=== PATIENT | female | born 1955 | race Caucasian/White ===

== ENCOUNTER → 2017-07-28 12:14 | Outpatient (CLI) | payer MEDICARE ==
[2015-11-30 08:18] VITALS: BMI 31.0
[~2017-07-28 12:14] MED LIST: APAP325 MG PO; BAYER CHEWABLE81 MG PO; DEXTROSE 50%/WA50 ML IV; ECOTRIN325 MG PO; GLUCAGON1 MG/KIT IM; GLUCAGON1 MG/KIT SQ; HUMULIN R100 U/ML; HYDROCHLOROTHIA25 MG PO; IMDUR30 MG PO; INSTA-GLUCOSE31 GM PO; LOPRESSOR50 MG PO; MERREM IV1 G/VIAL IV; MULTI-DAY VITAM1 TAB PO; NORCO 10/325 TA1 TA1 PO; NORCO 5/325 TAB1 TA1 PO; NORVASC5 MG PO; ONDANSETRON4 MG/2 M3 IV; PLAVIX75 MG PO; PRAVACHOL20 MG PO; PRINIVIL20 MG PO; PROAIR HFA8.5 GM INH; SODIUM CL 0.91000 ML IV; SPIRIVA18 MCG INH; ZESTORETIC 20/21 TAB PO
== END | disposition home or self-care (01) ==
LOC: D.MAMMO 12:14
DX: N64.4 Mastodynia (principal)

== ENCOUNTER 2017-11-10 09:11 | Day surgery (SDC) | payer MEDICARE ==
--- NOTE | ~2017-11-10 | OP ---
PATIENT NAME: WHITNEY SAENZ MEDICAL RECORD: [id number] :53 LOCATION:[facility] ADMISSION DATE: SURGEON: ULISSES JOEL DO DATE OF OPERATION: 11/10/2017 PROCEDURE: EGD with biopsies. INDICATIONS FOR PROCEDURE: Epigastric pain, heartburn, nausea. SCOPE: Olympus video gastroscope. MEDICATIONS: Propofol 150 mg IV per anesthesia. ESTIMATED BLOOD LOSS: Minimal. COMPLICATIONS: None. FINDINGS: Informed consent was given. The patient was made comfortable with the above medication. After reaching an adequate level of sedation by slow IV push, the patient was placed on her left side. The endoscope was advanced under direct visualization through the mouth to the second portion of the duodenum. The upper, middle, and lower thirds of the esophagus appeared normal. At the GE junction, there was some mild evidence of LA class A reflux-induced esophagitis. The endoscope was advanced beyond the GE junction into the stomach and retroflexed to view the cardia, which appeared normal. The fundus also appeared normal. The entire stomach exhibited some erythema and granularity consistent with gastritis. Random biopsies were taken to submit for histology and to rule out H. pylori. In the antrum and prepyloric region, there were a few small ulcerations, which had a crated appearance. There was no evidence of bleeding from these sites. The endoscope was advanced beyond the pylorus into the duodenum, which also revealed some erythema and granularity. There were a few shallow and superficial ulcerations within the duodenum as well. The endoscope was then withdrawn from the patient. The patient tolerated the procedure well and there were no complications. IMPRESSION: 1. LA class A reflux-induced esophagitis. 2. Gastritis. 3. Few gastric ulcers. 4. Duodenitis. 5. Duodenal ulcer. PLAN AND RECOMMENDATIONS: 1. Discharge home when recovery parameters are met. 2. Follow up biopsy specimen results. 3. GERD diet and reflux precautions. 4. Continue current medications. 5. Protonix or equivalent PPI 40 mg daily times 8 weeks. 6. Repeat EGD in 12 weeks to document healing of ulcerations. If these are not healed at that time, biopsies will be taken of the gastric ulcers. 7. We will follow up on nausea symptoms. If this is persistent, consider gastric emptying scan. TRANSINT:[id number] Voice Confirmation ID: [id number] DOCUMENT ID: [id number] OPERATIVE REPORT [id number] WHITNEY SAENZ,ULISSES Zaidi DO at 0852 CC: [id number] DICTATION DATE: 11/10/17 1119 SHOT HOLE SHOOTER: 11/10/17 1150 [facility] 11/10/17 [place] [id number] [place] [id number]
[2017-11-10 10:23] VITALS: BP 123/69; BMI 29.6
[2017-11-10 10:32] LABS: HEMATOCRIT 46.5 % (36.0-48.0); HEMOGLOBIN 15.2 g/dL (12-16); MCH 27.8 pg (26.0-34.0); MCHC 32.7 g/dL (31.0-37.0); MCV 85.2 fL (80.0-100.0); MEAN PLATELET VOLUME 10.3 fL (7.4-10.4); RBC 5.46 10x6/uL (4.00-5.40); RDW 14.8 % (11.5-14.5); WBC 12.5 10x3/uL (4.8-10.8)
== END 2017-11-10 12:20 | disposition home or self-care (01) ==
LOC: D.OPS 09:11
PROVIDERS: Anesthesiology
DX: R10.13 Epigastric pain (principal); R11.0 Nausea; K29.70 Gastritis, unspecified, without bleeding; K29.80 Duodenitis without bleeding; I10 Essential (primary) hypertension; J44.9 Chronic obstructive pulmonary disease, unspecified; K26.9 Duodenal ulcer, unspecified as acute or chronic, without hemorrhage or perforation

== ENCOUNTER 2017-11-29 14:29 | Outpatient (CLI) | payer MEDICARE ==
[~2017-11-29] VITALS: Ht 167.6 cm; Wt 84.2 kg
--- NOTE | ~2017-11-29 | HEMODYNAMI ---
PATIENT:WHITNEY SAENZ MEDICAL RECORD: [id number] : 53 [id number] ADMISSION DATE: 11/29/17 Generatedon:11/30/201710:11 Patient name: WHITNEY SAENZ Patient #: [id number] SSN: D OB: 1955 Date of study: 11/30/2017 Page: Of Hemodynamic Procedure Report Patient Data Patient Demographics Procedure consent was obtained First Name: WHITNEY Gender: Female Last Name: DANY : 1955 [facility] Initial: CATHERINE Age: 62 year(s) Patient #: [id number] Race: Additional ID: [id number] Contact details Address: [address] [place] [address] State: [place] City: [place] Zip code: [address] Past Medical History History of disease Date Diagnosis Comments CAD Peripheral vascular disease COPD Allergies: No known allergies Admission Admission Data Admission Date: 11/29/2017 Admission Time: 17:16 Admit Source: Emergency department Room #: D.2115 Lab Results Lab Result Date: 11/29/2017 Lab Result Time: 14:00 Biochemistry Name Units Result Min Max BUN mg/dl 17 --(---*)-- 7 18 Creatinine mg/dl 1.2 --(---*)-- 0.6 1.3 Troponin I ng/ml 0.964 --(----)-* 0 0.06 Troponin l ng/ml 1.279 --(----)-* 0 0.06 CBC Name Units Result Min Max Hematocrit % 49.8 --(--*-)-- 42 54 Hemoglobin g/dl 16.4 --(--*-)-- 13.5 17.5 Procedure Procedure Types Cath Procedure Diagnostic Procedure LHC LHC w/Coronaries w/Grafts Sedation Charges Moderate Sedation up to 45 minutes PCI Procedure AMI/SVG/SILVERWARE CLEANER PTCA or Stent SVG-BMS/MYRNA Initial Procedure Description Procedure Date Procedure Date: 11/30/2017 Procedure Start Time: 8:07 Procedure End Time: 9:57 Procedure Staff Name Function Roberto Tirado MD Performing Physician Felicita Baig RT Monitor Reid Brown RT Scrub Chai Bell RN Nurse Procedure Data Cath Procedure Fluoroscopy Diagnostic fluoroscopy Total fluoroscopy Time: time: 24.4 min 24.4 min Diagnostic fluoroscopy Total fluoroscopy dose: dose: 2577 mGy 2577 mGy Contrast Material Contrast Material Type Amount (ml) Isovue 300 220 Entry Location Entry Primary Successful Side Size Upsize Upsize Entry Closure Succes sful Closure Location (Fr) 1 (Fr) 2 (Fr) Remarks Device Remarks Femoral Right 5 Fr 6 Fr Exoseal artery Short Estimated blood loss: 10 ml Diagnostic catheters Device Type Used For End Catheter Placement MULTIPACK JL 4.0 5Fr Procedure catheter MULTIPACK 3DRC 5Fr Procedure catheter DIAGNOSTIC MPA-2 5Fr Procedure catheter ([id number]) MULTIPACK Pigtail 5 Fr Ventriculography catheter Procedure Complications No complications Procedure Medications Medication Administration Route Dosage Plavix P.O. 300 mg Lidocaine 2% added to field 20 Heparin Flush Bag added to field 2 bags (1000units/500ml NS) Oxygen NC 2 l/min 0.9% NaCl I.V. 100 ml/hr Versed I.V. 2 mg Fentanyl I.V. 25 mcg Versed I.V. 1 mg Angiomax (bolus) Angiomax Drip I.V. drip 29.4 ml/hr (250mg/50ml NS) (Standard) Versed I.V. 1 mg Fentanyl I.V. 25 mcg Fentanyl I.V. 50 mcg Heparin Flush Bag added to field 1 bags (1000units/500ml NS) Nitroglycerin IC/IA Angiomax Drip 29.4 ml/hr (250mg/50ml NS) (Standard) Hemodynamics Rest Heart Rate: 79 (bpm) Pressure Samples Time Site Value (mmHg) Purpose Heart Use Rate(bpm) 8:27 LV 158/-8,16 EDP 79 8:29 AO 139/66(98) Pullback 79 8:29 LV 147/13,16 Pullback 79 Gradients Valve Time Site 1 Site 2 Mean SEP/DFP Peak To Heart Use (mmHg) (sec/min) Peak Rate (mmHg) (bpm) Aortic 8:29 LV AO 6 21 8 79 147/13,16 139/66(98) Calculations Valve P-P Mean Valve Index Valve Source Name Gradient Area Flow (cm2) Aortic 8 6 8 6 Snapshots Pre Cath Intra NCS Post Cath Vital Signs Time Heart Resp SPO2 etCO2 NIBP (mmHg) Rhythm Pain Sedation Rate (ipm) (%) (mmHg) Status Level (bpm) 7:57:17 73 22 99 33.7 145/79(122) NSR 0 (11) 10(A) , No pain 8:02:32 76 19 99 38.2 141/78(112) NSR 0 (11) 10(A) , No pain 8:07:58 77 18 98 30 157/78(120) NSR 0 (11) 10(A) , No pain 8:12:41 75 20 96 34.5 132/81(115) NSR 0 (11) 10(A) , No pain 8:17:23 79 18 96 36 146/80(119) NSR 0 (11) 9(A) , No pain 8:22:06 80 18 96 33.7 139/79(112) NSR 0 (11) 9(A) , No pain 8:26:51 79 18 96 25.5 136/77(117) NSR 0 (11) 9(A) , No pain 8:31:33 77 20 96 36 134/73(112) NSR 0 (11) 9(A) , No pain 8:36:16 77 16 96 37.5 136/78(115) NSR 0 (11) 9(A) , No pain 8:41:01 76 17 95 32.3 143/72(111) NSR 0 (11) 9(A) , No pain 8:45:41 77 17 95 33.8 139/82(110) NSR 0 (11) 9(A) , No pain 8:50:24 79 18 96 33.8 149/73(111) NSR 0 (11) 9(A) , No pain 8:55:07 78 17 96 28.5 135/79(105) NSR 0 (11) 9(A) , No pain 8:59:45 78 16 94 36 130/72(98) NSR 0 (11) 9(A) , No pain 9:04:24 79 13 94 34.5 125/74(96) NSR 0 (11) 9(A) , No pain 9:09:06 78 14 94 36.8 122/67(111) NSR 0 (11) 9(A) , No pain 9:13:47 79 15 95 37.5 130/75(110) NSR 0 (11) 9(A) , No pain 9:18:27 80 16 96 37.5 138/79(114) NSR 0 (11) 9(A) , No pain 9:23:12 80 20 96 25.5 154/84(127) NSR 0 (11) 9(A) , No pain 9:27:57 84 9 97 36.7 160/84(122) NSR 0 (11) 9(A) , No pain 9:32:40 81 18 93 13.5 147/81(114) NSR 0 (11) 9(A) , No pain 9:37:20 79 15 96 38.3 133/80(106) NSR 0 (11) 9(A) , No pain 9:42:03 78 13 96 42.8 142/75(103) NSR 0 (11) 9(A) , No pain 9:46:43 77 15 96 24.7 132/76(102) NSR 0 (11) 9(A) , No pain 9:51:22 75 18 97 36 129/73(112) NSR 0 (11) 10(A) , No pain 9:56:05 69 15 97 32.3 134/67(118) NSR 0 (11) 10(A) , No pain Medications Time Medication Route Dose Verified Delivered Reason Notes Effectiveness by by 7:55:41 Plavix P.O. 300 Roberto Buffie used for mg Celestino Bell RN procedure 7:55:50 Lidocaine 2% added to field 20ml Roberto Roberto for local vial Celestino Tirado MD anesthetic 7:55:57 Heparin Flush added to field 2 Roberto Roberto used for Bag bags Celestino Tirado MD procedure (1000units/500ml NS) 7:56:09 Oxygen NC 2 Roberto Buffie used for l/min Celestino montero MD 7:56:18 0.9% NaCl I.V. 100 Roberto Buffie Per physicia n ml/hr Celestino Bell RN, MD 8:00:35 Versed I.V. 2 mg Roberto Buffie for sedation Celestino Bell RN, MD 8:00:42 Fentanyl I.V. 25 Roberto Buffie for sedation mcg Celestino Bell RN, MD 8:11:07 Versed I.V. 1 mg Roberto Buffie for sedation Celestino Bell RN, MD 8:33:05 Angiomax (bolus) Roberto Buffie 250mg/50 Celestino Bell RN ml MD 8:34:18 Angiomax Drip I.V. drip 29.4 Roberto Buffie for (250mg/50ml NS) ml/hr Celestino Bell RN anticoagulation (Standard) 8:54:54 Versed I.V. 1 mg Roberto Buffie for sedation Celestino Bell RN, MD 8:55:02 Fentanyl I.V. 25 Roberto Buffie for sedation mcg Celestino Bell RN, MD 9:22:09 Fentanyl I.V. 50 Roberto Buffie for chest pa in mcg Celestino Bell RN, MD 9:23:45 Nitroglycerin mixed Roberto Roberto for IC/IA and Celestino Tirado MD vasodilation on MD field 9:37:57 Heparin Flush added to field 1 Roberto Buffie used for Bag bags Celestino Bell RN procedure (1000units/500ml NS) 9:50:59 Angiomax Drip I.V. 29.4 Roberto Roberto for (250mg/50ml NS) drip-discontinued ml/hr Celestino Tirado MD anticoagulation (Standard) Procedure Log Time Note 7:21:57 Informed consent obtained and on chart 7:22:00 Admit Source: Emergency department 7:22:42 Diagnostic Cath status Elective 7:22:56 Time tracking: Call back 7:23:00 Plan of Care:Hemodynamics will remain stable., Cardiac rhythm will remain stable., Comfort level will be maintained., Respiratory function will remain adequate., Patient/ family verbilizes understanding of procedure., Procedure tolerated without complication., Recovers from procedure without complications.. 7:23:07 H&P Date Dictated: 11/29/2017 New H&P dictated by physician.. 7:24:16 Lab Result : BUN 17 mg/dl 7:24:16 Lab Result : Creatinine 1.2 mg/dl 7:24:16 Lab Result : Troponin T 0.964 ng/ml 7:24:16 Lab Result : Troponin l 1.279 ng/ml 7:24:16 Lab Result : Hematocrit 49.8 % 7:24:16 Lab Result : Hemoglobin 16.4 g/dl 7:24:19 Lab results completed and on chart. 7:30:08 Chai Bell RN sent for patient. Start room use. 7:45:08 Patient received from Med II to CCL 1 Alert and oriented. Tansferred to table in Supine position. 7:45:09 Warm blankets applied, and anamaria hugger turned on for patient comfort. 7:45:09 Correct patient and procedure confirmed by team. 7:45:15 ECG and BP/O2 sat monitors applied to patient. 7:45:17 Pre-procedure instructions explained to patient. 7:45:17 Pre-op teaching completed and patient verbalized understanding. 7:45:19 Family in patients room. 7:45:20 Patient NPO since Midnight. 7:45:27 Patient allergic to No known allergies 7:54:34 Is the patient allergic to Iodine/contrast media? No. 7:54:39 Is patient on blood thinner?Yes 7:54:43 ACC The patient was administered the following blood thiners within the last 24 hours: ACCPlavix 7:54:45 Patient diabetic? No. 7:54:52 Previous problem with sedation/anesthesia? No ? 7:54:55 Snore? Yes 7:54:56 Sleep apnea? No 7:55:02 Airway obstruction? Yes copd 7:55:16 Dentures? No ? 7:55:23 IV patent on arrival in right forearm with 0.9% NaCl at [facility]. 7:55:41 Plavix 300 mg P.O. was administered by Chai Bell RN; used for procedure; 7:55:42 Right groin area was prepped with chlora-prep and draped in sterile fashion 7:55:43 Alarms reviewed by R. N. 7:55:44 Alarms reviewed by R. N. 7:55:44 Sharps counted by scrub and verified by R.N. 7:55:46 Physician paged 7:55:48 Physician arrived 7:55:49 --------ALL STOP TIME OUT------ 7:55:50 Lidocaine 2% 20ml vial added to field was administered by Roberto Tirado MD; for local anesthetic; 7:55:50 Final Timeout: patient, procedure, and site verified with staff and physician. All members of the team are in agreement. 7:55:56 Right groin site verified by team. 7:55:57 Heparin Flush Bag (1000units/500ml NS) 2 bags added to field was administered by Roberto Tirado MD; used for procedure; 7:56:09 Oxygen 2 l/min NC was administered by Chai Bell RN; used for procedure; 7:56:18 0.9% NaCl 100 ml/hr I.V. was administered by Chai Bell RN; Per physician; 7:56:21 Vital chart was started 7:56:26 Physical assessment completed. ASA score P 2 - A patient with mild systemic disease as per Roberto Tirado MD. 7:56:33 Sedation plan: IV Moderate Sedation Medication:Versed, Fentanyl 7:56:45 Use device set Femoral Dx 7:56:51 Procedure started. 7:56:51 Full Disclosure recording started 7:57:28 ACIST Syringe (56156) opened to sterile field. 7:57:29 Bag Decanter (2002S) opened to sterile field. 7:57:30 Medline Cath Pack ([id number]) opened to sterile field. 7:57:30 SHEATH 5FR [place] ([id number]) opened to sterile field. 7:57:31 DIAGNOSTIC WIRE .035 260cm J wire (395236) opened to sterile field. 7:57:32 ACIST Hand Control (65773) opened to sterile field. 7:57:33 ACIST Manifold (42992) opened to sterile field. 7:57:34 DIAGNOSTIC Multipack 5Fr catheter set (DF3564) opened to sterile field. 7:57:35 Tegaderm 4 x 4 (1626W) opened to sterile field. 7:57:50 PERCUTANEOUS ENTRY 19GA needle opened to sterile field. 8:00:35 Versed 2 mg I.V. was administered by Chai Bell RN; for sedation; 8:00:42 Fentanyl 25 mcg I.V. was administered by Chai Bell RN; for sedation; 8:07:56 Local anesthetic to right femoral artery with Lidocaine 2% by Roberto Tirado MD.INITIAL ACCESS ONLY 8:08:00 MICROPUNCTURE 4FR Cook ([id number]) opened to sterile field. 8:08:02 Access obtained with 4Fr micropunture. 8:08:12 A 5 Fr sheath was inserted into the Right Femoral artery 8:09:25 Zero performed for pressure channel P1 8:10:22 A MULTIPACK JL 4.0 5Fr catheter was advanced over the wire and used for Procedure. 8:10:27 LCA angiography performed. 8:11:07 Versed 1 mg I.V. was administered by Chai Bell RN; for sedation; 8:12:41 Catheter removed. 8:13:01 A MULTIPACK 3DRC 5Fr catheter was advanced over the wire and used for Procedure. 8:13:48 RCA angiography performed. 8:15:40 SVG to Diag angiography performed. 8:20:11 VILLALTA to LAD angiography performed. 8:21:40 Catheter removed. 8:24:20 A DIAGNOSTIC MPA-2 5Fr catheter ([id number]) was advanced over the wire and used for Procedure. 8:24:39 SVG to RCA occluded. 8:25:08 Catheter removed. 8:26:27 A MULTIPACK Pigtail 5 Fr catheter was advanced over the wire and used for Ventriculography. 8:28:27 COPILOT Valve Control ([id number]) opened to sterile field. 8:29:24 EF : 50 % 8:30:22 GUIDE 6FR LCB SH catheter ([id number]) opened to sterile field. 8:30:23 BMW 190cm [place] 2 J wire ([id number]) opened to sterile field. 8:30:23 INFLATOR Merit BasixCompak (BF4930) opened to sterile field. 8:30:25 SHEATH 6FR [place] (PEW086) opened to sterile field. 8:30:42 Catheter removed. 8:30:44 Proceeding to intervention. 8:30:57 Sheath upsized to a 6 Fr Short. 8:33:05 Angiomax (bolus) was administered by Chai Bell RN; ; 250mg/50 ml 8:34:18 Angiomax Drip (250mg/50ml NS) (Standard) 29.4 ml/hr I.V. drip was administered by Chai Bell RN; for anticoagulation; 8:43:10 6 Fr LCB SH guide catheter was inserted over the wire 8:54:54 Versed 1 mg I.V. was administered by Chai Bell RN; for sedation; 8:55:02 Fentanyl 25 mcg I.V. was administered by Chai Bell RN; for sedation; 8:55:14 spiderFX 3.0 opened to sterile field. 9:07:05 Spider would not advance into SVG. 9:08:34 bmw wire advanced. 9:08:53 Wire advanced across lesion. 9:15:17 The MITCHELL RX 2.5 x 22 stent ([id number]) was advanced then removed because device failure 9:15:47 Stent struts were damaged 9:20:24 Inflation number: 1 A EUPHORA 3.0 x 15 Balloon ([id number]) was prepped and advanced across the Aorta Left -> 1st Diag, then inflated to 12 JHON for 0:45 (min:sec). 9:21:22 Inflation number: 2 The EUPHORA 3.0 x 15 Balloon ([id number]) was reinflated across the Aorta Left -> 1st Diag, to 6 JHON for 0:23 (min:sec). 9:22:09 Fentanyl 50 mcg I.V. was administered by Chai Bell RN; for chest pain; 9:23:45 Nitroglycerin IC/IA mixed and on field was administered by Roberto Tirado MD; for vasodilation; 9:25:33 The ELUNIR 2.5 x 20 stent ([id number]) was advanced then removed because device failure 9:30:08 Inflation number: 3 A EUPHORA 3.0 x 20 Balloon ([id number]) was prepped and advanced across the Aorta Left -> 1st Diag, then inflated to 8 JHON for 0:13 (min:sec). 9:30:24 Inflation number: 4 The EUPHORA 3.0 x 20 Balloon ([id number]) was reinflated across the Aorta Left -> 1st Diag, to 9 JHON for 0:13 (min:sec). 9:30:49 Inflation number: 5 The EUPHORA 3.0 x 20 Balloon ([id number]) was reinflated across the Aorta Left -> 1st Diag, to 14 JHON for 0:11 (min:sec). 9:32:03 Balloon removed over the wire. 9:34:17 Inflation Number: 6 A MITCHELL RX 2.5 x 26 stent ([id number]) was prepped and advanced across the Aorta Left -> 1st Diag. The stent was deployed at 14 JHON for 0:10 (min:sec). 9:37:57 Heparin Flush Bag (1000units/500ml NS) 1 bags added to field was administered by Chai Bell RN; used for procedure; 9:40:02 Inflation Number: 7 A MITCHELL RX 3.0 x 18 stent ([id number]) was prepped and advanced across the Aorta Left -> 1st Diag. The stent was deployed at 15 JHON for 0:14 (min:sec). 9:44:51 Inflation Number: 8 A MITCHELL RX 2.0 x 18 stent ([id number]) was prepped and advanced across the Aorta Left -> 1st Diag. The stent was deployed at 12 JHON for 0:06 (min:sec). 9:44:58 Inflation number: 9 The stent balloon was then re-inflated across the Aorta Left -> 1st Diag to 0 JHON for 0:00 (min:sec). 9:49:45 Inflation Number: 10 A MITCHELL RX 2.0 x 12 stent ([id number]) was prepped and advanced across the Aorta Left -> 1st Diag. The stent was deployed at 12 JHON for 0:00 (min:sec). 9:50:14 EXOSEAL 6Fr (EX600) opened to sterile field. 9:50:59 Angiomax Drip (250mg/50ml NS) (Standard) 29.4 ml/hr I.V. drip-discontinued was administered by Roberto Tirado MD; for anticoagulation; 9:52:42 Wire removed. 9:52:43 Guide catheter removed. 9:52:56 Sheath removed intact; hemostasis achieved with Exoseal to the Right Femoral artery. 9:52:59 Procedure ended.(Physican Out) 9:53:13 Fluoroscopy time 24.40 minutes. 9:53:17 Flurop Dose total: 2577 9:53:17 Fluoroscopy dose: 2577 mGy 9:53:29 Contrast amount:Isovue 300 220ml. 9:53:31 Sharps counted by scrub and verified by R.N. 9:53:37 Insertion/operative site no bleeding no hematoma. 9:53:59 Post right femoral artery:stable 9:54:03 Post Procedure Pulses reassessed and unchanged 9:54:06 Post-procedure physical assessment completed. ASA score P 2 - A patient with mild systemic disease as per Roberto Tirado MD. 9:54:12 Post procedure rhythm: unchanged. 9:54:16 Estimated blood loss: 10 ml 9:54:20 Post procedure instruction explained to patient.Patient verbalizes understanding. 9:55:15 Procedure type changed to Cath procedure, Diagnostic procedure, LHC, LHC w/Coronaries w/Grafts, Sedation Charges, Moderate Sedation up to 45 minutes, PCI procedure, AMI/SVG/SILVERWARE CLEANER PTCA or Stent, SVG-BMS/MYRNA Initial 9:55:18 Procedure and supply charges have been captured, reviewed, submitted and are correct. 9:56:55 Procedure Complication : No complications 9:56:58 Vital chart was stopped 9:56:59 See physician's report for complete and final results. 9:57:05 Report given to Med II. 9:57:09 Patient transfered to Med II with Bed. 9:57:11 Procedure ended. 9:57:11 Full Disclosure recording stopped 9:57:15 End room use (Document Last) 10:10:07 FEMSTOP Gold (E81739) opened to sterile field. 10:10:41 Femstop placed over the right femoral artery at 130 mmHg. Hemostasis achieved. Intervention Summary Intervention Notes Time ActionType Lesion and Equipment Used Action# Pressure Duration Attributes 9:15:17 Discard MITCHELL RX 2.5 x Stent 22 stent ([id number]) 9:20:24 Inflate Aorta Left EUPHORA 3.0 x 1 12 00:45 balloon -> 1st Diag 15 Balloon ([id number]) 9:21:22 Reinflate Aorta Left EUPHORA 3.0 x 2 6 00:23 balloon -> 1st Diag 15 Balloon ([id number]) 9:25:33 Discard ELUNIR 2.5 x Stent 20 stent ([id number]) 9:30:08 Inflate Aorta Left EUPHORA 3.0 x 3 8 00:13 balloon -> 1st Diag 20 Balloon ([id number]) 9:30:24 Reinflate Aorta Left EUPHORA 3.0 x 4 9 00:13 balloon -> 1st Diag 20 Balloon ([id number]) 9:30:49 Reinflate Aorta Left EUPHORA 3.0 x 5 14 00:11 balloon -> 1st Diag 20 Balloon ([id number]) 9:34:17 Place stent Aorta Left MITCHELL RX 2.5 x 6 14 00:10 -> 1st Diag 26 stent ([id number]) 9:40:02 Place stent Aorta Left MITCHELL RX 3.0 x 7 15 00:14 -> 1st Diag 18 stent ([id number]) 9:44:51 Place stent Aorta Left MITCHELL RX 2.0 x 8 12 00:06 -> 1st Diag 18 stent ([id number]) 9:44:58 Reinflate Aorta Left MITCHELL RX 2.0 x 9 0 00:00 stent -> 1st Diag 18 stent balloon ([id number]) 9:49:45 Place stent Aorta Left MITCHELL RX 2.0 x 10 12 00:00 -> 1st Diag 12 stent ([id number]) Device Usage Item Name Manufacture Quantity Catalog [facility] Lot# / Number Charge Number Stock Stock Serial# Code ACIST Syringe Acist 1 50634 213828 428946 700581 20 (12040) Medical Systems Inc Bag Decanter Microtek 1 2001S 237151 50641 166575 5 (2001S) Medical Inc. Medline Cath Cardinal 1 [id number] 571689 40048 910383 5 Pack Health ([id number]) SHEATH 5FR Terumo 1 GWK852 128970 861859 364101 40 [place] (PST027) DIAGNOSTIC St Evaristo 1 952700 629698 509768 398498 30 WIRE .035 260cm J wire (469366) ACIST Hand Acist 1 24060 897276 786051 536916 5 Control Medical (10222) Systems Inc ACIST Manifold Acist 1 55138 298565 890686 718068 5 (71281) Medical Systems Inc DIAGNOSTIC Cardinal 1 IK9819 581473 43041 861093 30 Multipack 5Fr Health catheter set (LA4260) Tegaderm 4 x 4 3M 1 1626W 301610 285922 384722 5 (1626W) PERCUTANEOUS SoothEase Medical 1 T36598 676227 819976 5 ENTRY 19GA needle MICROPUNCTURE SoothEase [facility] 1 Q93422 216809 676201 885511 5 4FR SoothEase (F82961) MULTIPACK JL Cardinal 1 691065 5 4.0 5Fr Health catheter MULTIPACK 3DRC Cardinal 1 971529 5 5Fr catheter Health DIAGNOSTIC Cardinal 1 [id number] 731695 521083 456027 5 MPA-2 5Fr Health catheter (557717Y) MULTIPACK Cardinal 1 229241 5 Pigtail 5 Fr Health catheter COPILOT Valve Grajeda 1 0090662 468615 962422 173164 5 Control Vascular (8328344) GUIDE 6FR LCB Medtronic 1 [id number] 389758 93573 416581 0 SH catheter ([id number]) BMW 190cm Grajeda 1 [id number] 238459 87351 258259 5 [place] 2 J Vascular wire (3665696F) INFLATOR Merit Merit 1 EZ8491 105910 544628 955665 15 [employer] Medical (NO4064) SHEATH 6FR Terumo 1 LCQ862 224199 339219 786177 40 [place] (RLK648) spiderFX 3.0 Unknown 1 0 0 MITCHELL RX 2.5 x Medtronic 1 [id number] 978711 5528863 638903 5 [id number] 22 stent ([id number]) EUPHORA 3.0 x Medtronic 1 [id number] 386834 930891 211655 5 [id number] 15 Balloon ([id number]) ELUNIR 2.5 x Cardinal 1 [id number] 843848 139692 756706 5 [id number] 20 stent Health ([id number]) EUPHORA 3.0 x Medtronic 1 [id number] 154195 358443 410221 5 [id number] 20 Balloon ([id number]) MITCHELL RX 2.5 x Medtronic 1 [id number] 878402 8481501 371511 5 [id number] 26 stent ([id number]) MITCHELL RX 3.0 x Medtronic 1 [id number] 510538 9264652 563162 5 [id number] 18 stent ([id number]) MITCHELL RX 2.0 x Medtronic 1 [id number] 809042 0659551 481739 5 [id number] 18 stent ([id number]) MITCHELL RX 2.0 x Medtronic 1 [id number] 449044 2043087 443113 5 [id number] 12 stent ([id number]) EXOSEAL 6Fr Cardinal 1 EX600 144575 859011 748664 10 (EX600) [facility] St Evaristo 1 Q26103 227711 376326 465489 5 ([id number]) Signature Audit [place] Stage Time Signature Unsigned Intra-Procedure 11/30/2017 Felicita Baig 10:11:44 AM RT(R) Signatures Monitor : Felicita Baig RT Signature : Date : Time : [address] [address]
--- NOTE | ~2017-11-29 | HEMODYNAMI ---
PATIENT:WHITNEY SAENZ MEDICAL RECORD: [id number] : 53 LOCATION:D. D.2115 ADMISSION DATE: 11/29/17 Generatedon:12/01/20178:45 Patient name: WHITNEY SAENZ Patient #: [id number] SSN: D OB: 1955 Date of study: 11/30/2017 Page: Of Hemodynamic Procedure Report Patient Data Patient Demographics Procedure consent was obtained First Name: WHITNEY Gender: Female Last Name: DANY : 1955 [facility] Initial: CATHERINE Age: 62 year(s) Patient #: [id number] Race: Additional ID: [id number] Contact details [address]: [address] [place] [address] State: [place] City: [place] Zip code: [address] Past Medical History History of disease Date Diagnosis Comments CAD Peripheral vascular disease COPD Allergies: No known allergies Admission Admission Data Admission Date: 11/29/2017 Admission Time: 17:16 Admit Source: Emergency department Room #: D.2115 Lab Results Lab Result Date: 11/29/2017 Lab Result Time: 14:00 Biochemistry Name Units Result Min Max BUN mg/dl 17 --(---*)-- 7 18 Creatinine mg/dl 1.2 --(---*)-- 0.6 1.3 Troponin I ng/ml 0.964 --(----)-* 0 0.06 Troponin l ng/ml 1.279 --(----)-* 0 0.06 CBC Name Units Result Min Max Hematocrit % 49.8 --(--*-)-- 42 54 Hemoglobin g/dl 16.4 --(--*-)-- 13.5 17.5 Procedure Procedure Types Cath Procedure Diagnostic Procedure LHC LHC w/Coronaries w/Grafts Sedation Charges Moderate Sedation up to 45 minutes PCI Procedure AMI/SVG/INSTRUCTIONAL ASSISTANT PTCA or Stent SVG-BMS/MYRNA Initial Procedure Description Procedure Date Procedure Date: 11/30/2017 Procedure Start Time: 8:07 Procedure End Time: 9:57 Procedure Staff Name Function Chai Bell RN Nurse Reid Brown RT Scrub Felicita Baig RT Monitor Roberto Tirado MD Performing Physician Jennifer Francis RT Monitor Procedure Data Cath Procedure Fluoroscopy Diagnostic fluoroscopy Total fluoroscopy Time: time: 24.4 min 24.4 min Diagnostic fluoroscopy Total fluoroscopy dose: dose: 2577 mGy 2577 mGy Contrast Material Contrast Material Type Amount (ml) Isovue 300 220 Entry Location Entry Primary Successful Side Size Upsize Upsize Entry Closure Succes sful Closure Location (Fr) 1 (Fr) 2 (Fr) Remarks Device Remarks Femoral Right 5 Fr 6 Fr Exoseal artery Short Estimated blood loss: 10 ml Diagnostic catheters Device Type Used For End Catheter Placement MULTIPACK JL 4.0 5Fr Procedure catheter MULTIPACK 3DRC 5Fr Procedure catheter DIAGNOSTIC MPA-2 5Fr Procedure catheter ([id number]) MULTIPACK Pigtail 5 Fr Ventriculography catheter Procedure Complications No complications Procedure Medications Medication Administration Route Dosage Plavix P.O. 300 mg Lidocaine 2% added to field 20 Heparin Flush Bag added to field 2 bags (1000units/500ml NS) Oxygen NC 2 l/min 0.9% NaCl I.V. 100 ml/hr Versed I.V. 2 mg Fentanyl I.V. 25 mcg Versed I.V. 1 mg Angiomax (bolus) Angiomax Drip I.V. drip 29.4 ml/hr (250mg/50ml NS) (Standard) Versed I.V. 1 mg Fentanyl I.V. 25 mcg Fentanyl I.V. 50 mcg Heparin Flush Bag added to field 1 bags (1000units/500ml NS) Nitroglycerin IC/IA Angiomax Drip 29.4 ml/hr (250mg/50ml NS) (Standard) Hemodynamics Rest HGB: 16.4 (g/dl) Heart Rate: 79 (bpm) Pressure Samples Time Site Value (mmHg) Purpose Heart Use Rate(bpm) 8:27 LV 158/-8,16 EDP 79 8:29 LV 147/13,16 Pullback 79 8:29 AO 139/66(98) Pullback 79 Gradients Valve Time Site 1 Site 2 Mean SEP/DFP Peak To Heart Use (mmHg) (sec/min) Peak Rate (mmHg) (bpm) Aortic 8:29 LV AO 6 21 8 79 147/13,16 139/66(98) Calculations Valve P-P Mean Valve Index Valve Source Name Gradient Area Flow (cm2) Aortic 8 6 8 6 Snapshots Pre Cath Intra NCS Post Cath Vital Signs Time Heart Resp SPO2 etCO2 NIBP (mmHg) Rhythm Pain Sedation Rate (ipm) (%) (mmHg) Status Level (bpm) 7:57:17 73 22 99 33.7 145/79(122) NSR 0 (11) 10(A) , No pain 8:02:32 76 19 99 38.2 141/78(112) NSR 0 (11) 10(A) , No pain 8:07:58 77 18 98 30 157/78(120) NSR 0 (11) 10(A) , No pain 8:12:41 75 20 96 34.5 132/81(115) NSR 0 (11) 10(A) , No pain 8:17:23 79 18 96 36 146/80(119) NSR 0 (11) 9(A) , No pain 8:22:06 80 18 96 33.7 139/79(112) NSR 0 (11) 9(A) , No pain 8:26:51 79 18 96 25.5 136/77(117) NSR 0 (11) 9(A) , No pain 8:31:33 77 20 96 36 134/73(112) NSR 0 (11) 9(A) , No pain 8:36:16 77 16 96 37.5 136/78(115) NSR 0 (11) 9(A) , No pain 8:41:01 76 17 95 32.3 143/72(111) NSR 0 (11) 9(A) , No pain 8:45:41 77 17 95 33.8 139/82(110) NSR 0 (11) 9(A) , No pain 8:50:24 79 18 96 33.8 149/73(111) NSR 0 (11) 9(A) , No pain 8:55:07 78 17 96 28.5 135/79(105) NSR 0 (11) 9(A) , No pain 8:59:45 78 16 94 36 130/72(98) NSR 0 (11) 9(A) , No pain 9:04:24 79 13 94 34.5 125/74(96) NSR 0 (11) 9(A) , No pain 9:09:06 78 14 94 36.8 122/67(111) NSR 0 (11) 9(A) , No pain 9:13:47 79 15 95 37.5 130/75(110) NSR 0 (11) 9(A) , No pain 9:18:27 80 16 96 37.5 138/79(114) NSR 0 (11) 9(A) , No pain 9:23:12 80 20 96 25.5 154/84(127) NSR 0 (11) 9(A) , No pain 9:27:57 84 9 97 36.7 160/84(122) NSR 0 (11) 9(A) , No pain 9:32:40 81 18 93 13.5 147/81(114) NSR 0 (11) 9(A) , No pain 9:37:20 79 15 96 38.3 133/80(106) NSR 0 (11) 9(A) , No pain 9:42:03 78 13 96 42.8 142/75(103) NSR 0 (11) 9(A) , No pain 9:46:43 77 15 96 24.7 132/76(102) NSR 0 (11) 9(A) , No pain 9:51:22 75 18 97 36 129/73(112) NSR 0 (11) 10(A) , No pain 9:56:05 69 15 97 32.3 134/67(118) NSR 0 (11) 10(A) , No pain Medications Time Medication Route Dose Verified Delivered Reason Notes Effectiveness by by 7:55:41 Plavix P.O. 300 Roberto Buffie used for mg Celestino montero MD 7:55:50 Lidocaine 2% added to field 20ml Roberto Roberto for local vial Celestino Tirado MD anesthetic 7:55:57 Heparin Flush added to field 2 Roberto Roberto used for Bag bags Celestino Tirado MD procedure (1000units/500ml NS) 7:56:09 Oxygen NC 2 Roberto Buffie used for l/min Celestino montero MD 7:56:18 0.9% NaCl I.V. 100 Roberto Buffie Per physicia n ml/hr Celestino Bell RN, MD 8:00:35 Versed I.V. 2 mg Roberto Buffie for sedation Celetsino Bell RN, MD 8:00:42 Fentanyl I.V. 25 Roberto Buffie for sedation mcg Celestino Bell RN, MD 8:11:07 Versed I.V. 1 mg Roberto Buffie for sedation Celestino Bell RN, MD 8:33:05 Angiomax (bolus) Roberto Buffie 250mg/50 Celestino Bell RN ml 8:34:18 Angiomax Drip I.V. drip 29.4 Roberto Buffie for (250mg/50ml NS) ml/hr Celestino Bell RN anticoagulation (Standard) 8:54:54 Versed I.V. 1 mg Roberto Buffie for sedation Celestino Bell RN, MD 8:55:02 Fentanyl I.V. 25 Roberto Buffie for sedation mcg Celestino Bell RN, MD 9:22:09 Fentanyl I.V. 50 Roberto Buffie for chest pa in mcg Celestino Bell RN, MD 9:23:45 Nitroglycerin mixed Roberto Roberto for IC/IA and Celestino Tirado MD vasodilation on MD field 9:37:57 Heparin Flush added to field 1 Roberto Buffie used for Bag bags Celestino Bell RN procedure (1000units/500ml NS) 9:50:59 Angiomax Drip I.V. 29.4 Roberto Roberto for (250mg/50ml NS) drip-discontinued ml/hr Celestino Tirado MD anticoagulation (Standard) Procedure Log Time Note 7:21:57 Informed consent obtained and on chart 7:22:00 Admit Source: Emergency department 7:22:42 Diagnostic Cath status Elective 7:22:56 Time tracking: Call back 7:23:00 Plan of Care:Hemodynamics will remain stable., Cardiac rhythm will remain stable., Comfort level will be maintained., Respiratory function will remain adequate., Patient/ family verbilizes understanding of procedure., Procedure tolerated without complication., Recovers from procedure without complications.. 7:23:07 H&P Date Dictated: 11/29/2017 New H&P dictated by physician.. 7:24:16 Lab Result : Troponin T 0.964 ng/ml 7:24:16 Lab Result : Hemoglobin 16.4 g/dl 7:24:16 Lab Result : Hematocrit 49.8 % 7:24:16 Lab Result : BUN 17 mg/dl 7:24:16 Lab Result : Creatinine 1.2 mg/dl 7:24:16 Lab Result : Troponin l 1.279 ng/ml 7:24:19 Lab results completed and on chart. 7:30:08 Chai Bell RN sent for patient. Start room use. 7:45:08 Patient received from Med II to CCL 1 Alert and oriented. Tansferred to table in Supine position. 7:45:09 Correct patient and procedure confirmed by team. 7:45:09 Warm blankets applied, and anamaria hugger turned on for patient comfort. 7:45:15 ECG and BP/O2 sat monitors applied to patient. 7:45:17 Pre-op teaching completed and patient verbalized understanding. 7:45:17 Pre-procedure instructions explained to patient. 7:45:19 Family in patients room. 7:45:20 Patient NPO since Midnight. 7:45:27 Patient allergic to No known allergies 7:54:34 Is the patient allergic to Iodine/contrast media? No. 7:54:39 Is patient on blood thinner?Yes 7:54:43 ACC The patient was administered the following blood thiners within the last 24 hours: ACCPlavix 7:54:45 Patient diabetic? No. 7:54:52 Previous problem with sedation/anesthesia? No ? 7:54:55 Snore? Yes 7:54:56 Sleep apnea? No 7:55:02 Airway obstruction? Yes copd 7:55:16 Dentures? No ? 7:55:23 IV patent on arrival in right forearm with 0.9% NaCl at [facility]. 7:55:41 Plavix 300 mg P.O. was administered by Chai Bell RN; used for procedure; 7:55:42 Right groin area was prepped with chlora-prep and draped in sterile fashion 7:55:43 Alarms reviewed by R. N. 7:55:44 Sharps counted by scrub and verified by R.N. 7:55:44 Alarms reviewed by R. N. 7:55:46 Physician paged 7:55:48 Physician arrived 7:55:49 --------ALL STOP TIME OUT------ 7:55:50 Final Timeout: patient, procedure, and site verified with staff and physician. All members of the team are in agreement. 7:55:50 Lidocaine 2% 20ml vial added to field was administered by Roberto Tirado MD; for local anesthetic; 7:55:56 Right groin site verified by team. 7:55:57 Heparin Flush Bag (1000units/500ml NS) 2 bags added to field was administered by Roberto Tirado MD; used for procedure; 7:56:09 Oxygen 2 l/min NC was administered by Chai Bell RN; used for procedure; 7:56:18 0.9% NaCl 100 ml/hr I.V. was administered by Chai Bell RN; Per physician; 7:56:21 Vital chart was started 7:56:26 Physical assessment completed. ASA score P 2 - A patient with mild systemic disease as per Roberto Tirado MD. 7:56:33 Sedation plan: IV Moderate Sedation Medication:Versed, Fentanyl 7:56:45 Use device set Femoral Dx 7:56:51 Full Disclosure recording started 7:56:51 Procedure started. 7:57:28 ACIST Syringe (25480) opened to sterile field. 7:57:29 Bag Decanter (2002S) opened to sterile field. 7:57:30 SHEATH 5FR [place] (JXE392) opened to sterile field. 7:57:30 Medline Cath Pack ([id number]) opened to sterile field. 7:57:31 DIAGNOSTIC WIRE .035 260cm J wire (452176) opened to sterile field. 7:57:32 ACIST Hand Control (26374) opened to sterile field. 7:57:33 ACIST Manifold (43921) opened to sterile field. 7:57:34 DIAGNOSTIC Multipack 5Fr catheter set (QK5849) opened to sterile field. 7:57:35 Tegaderm 4 x 4 (1626W) opened to sterile field. 7:57:50 PERCUTANEOUS ENTRY 19GA needle opened to sterile field. 8:00:35 Versed 2 mg I.V. was administered by Chai Bell RN; for sedation; 8:00:42 Fentanyl 25 mcg I.V. was administered by Chai Bell RN; for sedation; 8:07:56 Local anesthetic to right femoral artery with Lidocaine 2% by Roberto Tirado MD.INITIAL ACCESS ONLY 8:08:00 MICROPUNCTURE 4FR AGNITiO (D99620) opened to sterile field. 8:08:02 Access obtained with 4Fr micropunture. 8:08:12 A 5 Fr sheath was inserted into the Right Femoral artery 8:09:25 Zero performed for pressure channel P1 8:10:22 A MULTIPACK JL 4.0 5Fr catheter was advanced over the wire and used for Procedure. 8:10:27 LCA angiography performed. 8:11:07 Versed 1 mg I.V. was administered by Chai Bell RN; for sedation; 8:12:41 Catheter removed. 8:13:01 A MULTIPACK 3DRC 5Fr catheter was advanced over the wire and used for Procedure. 8:13:48 RCA angiography performed. 8:15:40 SVG to Diag angiography performed. 8:20:11 VILLALTA to LAD angiography performed. 8:21:40 Catheter removed. 8:24:20 A DIAGNOSTIC MPA-2 5Fr catheter ([id number]) was advanced over the wire and used for Procedure. 8:24:39 SVG to RCA occluded. 8:25:08 Catheter removed. 8:26:27 A MULTIPACK Pigtail 5 Fr catheter was advanced over the wire and used for Ventriculography. 8:28:27 COPILOT Valve Control (1255198) opened to sterile field. 8:29:24 EF : 50 % 8:30:22 GUIDE 6FR LCB SH catheter ([id number]) opened to sterile field. 8:30:23 INFLATOR Merit BasixCompak (YT3883) opened to sterile field. 8:30:23 BMW 190cm [place] 2 J wire ([id number]) opened to sterile field. 8:30:25 SHEATH 6FR [place] (ARJ626) opened to sterile field. 8:30:42 Catheter removed. 8:30:44 Proceeding to intervention. 8:30:57 Sheath upsized to a 6 Fr Short. 8:33:05 Angiomax (bolus) was administered by Chai Bell RN; ; 250mg/50 ml 8:34:18 Angiomax Drip (250mg/50ml NS) (Standard) 29.4 ml/hr I.V. drip was administered by Chai Bell RN; for anticoagulation; 8:43:10 6 Fr LCB SH guide catheter was inserted over the wire 8:54:54 Versed 1 mg I.V. was administered by Chai Bell RN; for sedation; 8:55:02 Fentanyl 25 mcg I.V. was administered by Chai Bell RN; for sedation; 8:55:14 SPIDER EMBOLIC PROTECTION DEVICE 3MM ([id number]) opened to sterile field. 9:07:05 Spider would not advance into SVG. 9:08:34 bmw wire advanced. 9:08:53 Wire advanced across lesion. 9:15:17 The MITCHELL RX 2.5 x 22 stent ([id number]) was advanced then removed because device failure 9:15:47 Stent struts were damaged 9:20:24 Inflation number: 1 A EUPHORA 3.0 x 15 Balloon ([id number]) was prepped and advanced across the Aorta Left -> 1st Diag, then inflated to 12 JHON for 0:45 (min:sec). 9:21:22 Inflation number: 2 The EUPHORA 3.0 x 15 Balloon ([id number]) was reinflated across the Aorta Left -> 1st Diag, to 6 JHON for 0:23 (min:sec). 9:22:09 Fentanyl 50 mcg I.V. was administered by Chai Bell RN; for chest pain; 9:23:45 Nitroglycerin IC/IA mixed and on field was administered by Roberto Tirado MD; for vasodilation; 9:25:33 The ELUNIR 2.5 x 20 stent ([id number]) was advanced then removed because device failure 9:30:08 Inflation number: 3 A EUPHORA 3.0 x 20 Balloon ([id number]) was prepped and advanced across the Aorta Left -> 1st Diag, then inflated to 8 JHON for 0:13 (min:sec). 9:30:24 Inflation number: 4 The EUPHORA 3.0 x 20 Balloon ([id number]) was reinflated across the Aorta Left -> 1st Diag, to 9 JHON for 0:13 (min:sec). 9:30:49 Inflation number: 5 The EUPHORA 3.0 x 20 Balloon ([id number]) was reinflated across the Aorta Left -> 1st Diag, to 14 JHON for 0:11 (min:sec). 9:32:03 Balloon removed over the wire. 9:34:17 Inflation Number: 6 A MITCHELL RX 2.5 x 26 stent ([id number]) was prepped and advanced across the Aorta Left -> 1st Diag. The stent was deployed at 14 JHON for 0:10 (min:sec). 9:37:57 Heparin Flush Bag (1000units/500ml NS) 1 bags added to field was administered by Chai Bell RN; used for procedure; 9:40:02 Inflation Number: 7 A MITCHELL RX 3.0 x 18 stent ([id number]) was prepped and advanced across the Aorta Left -> 1st Diag. The stent was deployed at 15 JHON for 0:14 (min:sec). 9:44:51 Inflation Number: 8 A MITCHELL RX 2.0 x 18 stent ([id number]) was prepped and advanced across the Aorta Left -> 1st Diag. The stent was deployed at 12 JHON for 0:06 (min:sec). 9:44:58 Inflation number: 9 The stent balloon was then re-inflated across the Aorta Left -> 1st Diag to 0 JHON for 0:00 (min:sec). 9:49:45 Inflation Number: 10 A MITCHELL RX 2.0 x 12 stent ([id number]) was prepped and advanced across the Aorta Left -> 1st Diag. The stent was deployed at 12 JHON for 0:00 (min:sec). 9:50:14 EXOSEAL 6Fr (EX600) opened to sterile field. 9:50:59 Angiomax Drip (250mg/50ml NS) (Standard) 29.4 ml/hr I.V. drip-discontinued was administered by Roberto Tirado MD; for anticoagulation; 9:52:42 Wire removed. 9:52:43 Guide catheter removed. 9:52:56 Sheath removed intact; hemostasis achieved with Exoseal to the Right Femoral artery. 9:52:59 Procedure ended.(Physican Out) 9:53:13 Fluoroscopy time 24.40 minutes. 9:53:17 Fluoroscopy dose: 2577 mGy 9:53:17 Flurop Dose total: 2577 9:53:29 Contrast amount:Isovue 300 220ml. 9:53:31 Sharps counted by scrub and verified by R.N. 9:53:37 Insertion/operative site no bleeding no hematoma. 9:53:59 Post right femoral artery:stable 9:54:03 Post Procedure Pulses reassessed and unchanged 9:54:06 Post-procedure physical assessment completed. ASA score P 2 - A patient with mild systemic disease as per Roberto Tirado MD. 9:54:12 Post procedure rhythm: unchanged. 9:54:16 Estimated blood loss: 10 ml 9:54:20 Post procedure instruction explained to patient.Patient verbalizes understanding. 9:55:15 Procedure type changed to Cath procedure, Diagnostic procedure, LHC, LHC w/Coronaries w/Grafts, Sedation Charges, Moderate Sedation up to 45 minutes, PCI procedure, AMI/SVG/INSTRUCTIONAL ASSISTANT PTCA or Stent, SVG-BMS/MYRNA Initial 9:55:18 Procedure and supply charges have been captured, reviewed, submitted and are correct. 9:56:55 Procedure Complication : No complications 9:56:58 Vital chart was stopped 9:56:59 See physician's report for complete and final results. 9:57:05 Report given to [facility]. 9:57:09 Patient transfered to [facility] with Bed. 9:57:11 Full Disclosure recording stopped 9:57:11 Procedure ended. 9:57:15 End room use (Document Last) 10:10:07 FEMSTOP Gold (O67777) opened to sterile field. 10:10:41 Femstop placed over the right femoral artery at 130 mmHg. Hemostasis achieved. Intervention Summary Intervention Notes Time ActionType Lesion and Equipment Used Action# Pressure Duration Attributes 9:15:17 Discard MITCHELL RX 2.5 x Stent 22 stent ([id number]) 9:20:24 Inflate Aorta Left EUPHORA 3.0 x 1 12 00:45 balloon -> 1st Diag 15 Balloon ([id number]) 9:21:22 Reinflate Aorta Left EUPHORA 3.0 x 2 6 00:23 balloon -> 1st Diag 15 Balloon ([id number]) 9:25:33 Discard ELUNIR 2.5 x Stent 20 stent ([id number]) 9:30:08 Inflate Aorta Left EUPHORA 3.0 x 3 8 00:13 balloon -> 1st Diag 20 Balloon ([id number]) 9:30:24 Reinflate Aorta Left EUPHORA 3.0 x 4 9 00:13 balloon -> 1st Diag 20 Balloon ([id number]) 9:30:49 Reinflate Aorta Left EUPHORA 3.0 x 5 14 00:11 balloon -> 1st Diag 20 Balloon ([id number]) 9:34:17 Place stent Aorta Left MITCHELL RX 2.5 x 6 14 00:10 -> 1st Diag 26 stent ([id number]) 9:40:02 Place stent Aorta Left MITCHELL RX 3.0 x 7 15 00:14 -> 1st Diag 18 stent ([id number]) 9:44:51 Place stent Aorta Left MITCHELL RX 2.0 x 8 12 00:06 -> 1st Diag 18 stent ([id number]) 9:44:58 Reinflate Aorta Left MITCHELL RX 2.0 x 9 0 00:00 stent -> 1st Diag 18 stent balloon ([id number]) 9:49:45 Place stent Aorta Left MITCHELL RX 2.0 x 10 12 00:00 -> 1st Diag 12 stent ([id number]) Device Usage Item Name Manufacture Quantity Catalog Number Hospital Part Current Minimal Lot# / Charge Number Stock Stock Serial# Code ACIST Syringe Acist 1 03776 632171 612110 023377 20 (55079) Medical Systems Inc Bag Decanter Microtek 1 2001S 809291 62163 237976 5 () Medical Inc. Medline Cath Cardinal 1 [id number] 288837 57898 592910 5 Pack Health ([id number]) SHEATH 5FR Terumo 1 IOO723 615192 437523 127354 40 [place] (BUR675) DIAGNOSTIC St Evaristo 1 867302 469357 954300 705978 30 WIRE .035 260cm J wire (759215) ACIST Hand Acist 1 03601 936846 734792 733521 5 Control Medical (64348) Systems Inc ACIST Manifold Acist 1 36085 731116 364860 152823 5 (71038) Medical Systems Inc DIAGNOSTIC Cardinal 1 WS0549 605470 20428 630186 30 Multipack 5Fr Health catheter set (UM7458) Tegaderm 4 x 4 3M 1 1626W 692030 696934 425984 5 (1626W) PERCUTANEOUS AGNITiO [facility] 1 G04082 634647 427646 5 ENTRY 19GA needle MICROPUNCTURE Cook Medical 1 B33345 883380 555469 115901 5 4FR Cook (K50267) MULTIPACK JL Cardinal 1 831403 5 4.0 5Fr Health catheter MULTIPACK 3DRC Cardinal 1 041579 5 5Fr catheter Health DIAGNOSTIC Cardinal 1 [id number] 864463 651175 198979 5 MPA-2 5Fr Health catheter (968848M) MULTIPACK Cardinal 1 775250 5 Pigtail 5 Fr Health catheter COPILOT Valve Grajeda 1 0791214 694506 988561 942169 5 Control Vascular (3369165) GUIDE 6FR LCB Medtronic 1 [id number] 027098 94173 989373 0 SH catheter ([id number]) BMW 190cm Grajeda 1 [id number] 080829 09985 516041 5 [place] 2 J Vascular wire ([id number]) INFLATOR Merit Merit 1 FA2651 311659 826220 037480 15 MileIQriSocialKaty Medical (AP3267) SHEATH 6FR Terumo 1 TIQ370 653705 717739 639324 40 [place] (TMH749) MITCHELL RX 2.5 x Medtronic 1 [id number] 562309 1597206 535623 5 [id number] 22 stent ([id number]) EUPHORA 3.0 x Medtronic 1 [id number] 590377 978327 178037 5 [id number] 15 Balloon ([id number]) ELUNIR 2.5 x Cardinal 1 [id number] 023263 551487 000836 5 [id number] 20 stent Health ([id number]) EUPHORA 3.0 x Medtronic 1 [id number] 483765 735282 306533 5 [id number] 20 Balloon ([id number]) MITCHELL RX 2.5 x Medtronic 1 [id number] 586100 0351380 503231 5 [id number] 26 stent ([id number]) MITCHELL RX 3.0 x Medtronic 1 [id number] 373993 9329206 815186 5 [id number] 18 stent ([id number]) MITCHELL RX 2.0 x Medtronic 1 [id number] 537906 4010136 698360 5 [id number] 18 stent ([id number]) MITCHELL RX 2.0 x Medtronic 1 [id number] 059302 4245894 920345 5 [id number] 12 stent ([id number]) EXOSEAL 6Fr Cardinal 1 EX600 633397 840432 529106 10 (EX600) Health FEMSTOP Gold St Evaristo 1 G07405 034824 950681 138418 5 (S14749) SPIDER EMBOLIC Medtronic 1 [id number] 466348 259363 5 PROTECTION DEVICE 3MM ([id number]) Signature Audit Leroy Stage Time Signature Unsigned Intra-Procedure 11/30/2017 Felicita Rodriguez Counts RT(R) 10:11:44 AM RT(R) 12/01/2017 8:41:30 AM Intra-Procedure 12/01/2017 Jennifer Counts 8:45:33 AM RT(R) Signatures Monitor : Felicita Baig RT Signature : Date : Time : Monitor : Jennifer Counts RT Signature : Date : Time : [address] [place] [address]
[2017-11-29 14:57] LABS: BASOPHILS 0.5 % (0-2); HEMATOCRIT 49.8 % (36.0-48.0); HEMOGLOBIN 16.4 g/dL (12-16); IMMATURE GRANULOCYTES 0.3 % (0-5); LYMPHOCYTES 16.4 % (15-50); MCH 28.2 pg (26.0-34.0); MCHC 32.9 g/dL (31.0-37.0); MCV 85.6 fL (80.0-100.0); MONOCYTES 9.1 % (2-11); NEUTROPHILS 71.7 % (40-80); PLATELET COUNT 285 10x3/uL (130-400); RBC 5.82 10x6/uL (4.00-5.40); RDW 14.8 % (11.5-14.5); WBC 14.6 10x3/uL (4.8-10.8)
[2017-11-29 15:42] LABS: ALKALINE PHOSPHATASE 94 U/L (46-116); ALT (SGPT) 51 U/L (10-68); BILIRUBIN - TOTAL 0.47 mg/dL (0.2-1.3); CALC OSMOLALITY 283 mosm/kg (275-300); CALCIUM 9.7 mg/dL (8.5-10.1); CARBON DIOXIDE 25.7 mmol/L (21.0-32.0); CHLORIDE - SERUM 103 mmol/L (98-107); CREATININE - SERUM 1.2 mg/dL (0.6-1.3); GLUCOSE 155 mg/dL (74-106); POTASSIUM - SERUM 4.1 mmol/L (3.5-5.1); PROTEIN - SERUM 7.9 g/dL (6.4-8.2); SODIUM 140 mmol/L (136-145); UREA NITROGEN 17 mg/dL (7-18); eGFR NON AFRICAN AMERICAN 48 mL/min (90-120)
[2017-11-29 15:55] LABS: CHOL - HDL RATIO 5.4 ratio (2.3-4.1); CHOLESTEROL, TOTAL 182 mg/dL (0-200); CREATINE KINASE 40 UL (21-215); HDL CHOLESTEROL 34 mg/dL (32-96); LDL CHOLESTEROL 126 mg/dL (0-100); LDL-HDL RATIO 3.7 ratio (1.5-3.5); TRIGLYCERIDE 112 mg/dL (30-200)
[2017-11-29 15:57] LABS: TROPONIN-I 0.074 ng/mL (0.000-0.060)
[2017-11-29 19:33] VITALS: BP 139/74; BMI 29.9
[2017-11-29] MEDS ORDERED: LEVAQUIN500 MG PO (19:46)
[2017-11-29] MEDS ORDERED: AMOXICILLIN500 M1 PO (19:46)
[2017-11-29] MEDS ORDERED: PEPTO-BISMOL262 M1 PO (19:47)
[2017-11-30] VITALS: BP 121/61
[2017-11-30 04:00] VITALS: BP 145/68
[2017-11-30 11:11] VITALS: Ht 167.6 cm; Wt 84.2 kg
[2017-11-30 14:53] VITALS: BP 118/70
[2017-11-30 16:39] VITALS: BP 140/79
== END 2017-11-30 17:55 | disposition home or self-care (01) ==
LOC: OBSVTIME → D.OPS 14:29 → D.ER 14:29 → D.CATH 14:29 → EDSTATUS 15:16 → OBSVTIME 17:16 → D.EDHOLD 17:16 → D.ER 17:16 → D.EDHOLD 18:04 → D.M2 18:04 → D.OPS 11-30 17:55 → D.M2 11-30 17:55
PROVIDERS: Family Medicine
DX: I21.4 Non-ST elevation (NSTEMI) myocardial infarction (principal); I25.119 Atherosclerotic heart disease of native coronary artery with unspecified angina pectoris; I25.719 Atherosclerosis of autologous vein coronary artery bypass graft(s) with unspecified angina pectoris; I10 Essential (primary) hypertension; I25.5 Ischemic cardiomyopathy; Z95.1 Presence of aortocoronary bypass graft; Z95.5 Presence of coronary angioplasty implant and graft; Z87.891 Personal history of nicotine dependence; I70.219 Atherosclerosis of native arteries of extremities with intermittent claudication, unspecified extremity; J44.9 Chronic obstructive pulmonary disease, unspecified; K21.9 Gastro-esophageal reflux disease without esophagitis; F32.9 Major depressive disorder, single episode, unspecified; Z79.02 Long term (current) use of antithrombotics/antiplatelets; Z79.2 Long term (current) use of antibiotics; Z79.82 Long term (current) use of aspirin; Z79.891 Long term (current) use of opiate analgesic; Z79.899 Other long term (current) drug therapy; Z01.812 Encounter for preprocedural laboratory examination
CPT/HCPCS: 93459; C9604; C9600

== ENCOUNTER → 2017-12-25 15:51 | Outpatient (CLI) | payer MEDICARE ==
[2017-11-30 11:11] VITALS: BMI 29.9
[~2017-12-25 15:51] MED LIST changes: +AMOXICILLIN500 M1 PO; +LEVAQUIN500 MG PO; +PEPTO-BISMOL262 M1 PO
[2017-12-25 18:39] LABS: CHOL - HDL RATIO 3.5 ratio (2.3-4.1); LDL-HDL RATIO 1.9 ratio (1.5-3.5)
== END | disposition home or self-care (01) ==
LOC: D.LABREF 15:51
PROVIDERS: Internal Medicine Cardiovascular Disease
DX: E78.5 Hyperlipidemia, unspecified (principal)

== ENCOUNTER → 2018-02-11 16:18 | Outpatient (CLI) | payer MEDICARE ==
[2017-11-30 11:11] VITALS: BMI 29.9
== END | disposition home or self-care (01) ==
LOC: D.MAMMO 01-26 10:30 → D.US 01-26 11:30 → D.MAMMO 13:30
DX: R92.8 Other abnormal and inconclusive findings on diagnostic imaging of breast (principal)

== ENCOUNTER 2018-03-06 22:46 | Inpatient (IN) | payer MEDICARE ==
[~2018-03-06] VITALS: Ht 167.6 cm; Wt 83.6 kg
--- NOTE | ~2018-03-06 | HP ---
PATIENT: WHITNEY MONCADA MEDICAL RECORD: [id number] ACCOUNT: [id number] LOCATION:[address] : 53 ADMISSION DATE: 03/07/18 HISTORY AND PHYSICAL EXAMINATION DIAGNOSES: 1. Non-Q-wave myocardial infarction. 2. Unstable angina, acute coronary syndrome. 3. Hypertension. 4. Hyperlipidemia. 5. Coronary artery disease. 6. Status post coronary bypass graft surgery. 7. Status post previous percutaneous transluminal coronary angioplasty stent. HISTORY OF PRESENT ILLNESS: Mrs. Moncada presents with chest discomfort. Her last cardiac intervention was 3 months ago vein graft to a very small diagonal. She has a vein graft to a right coronary and VILLALTA to the LAD. Her venetie ira vessels are very small and diffusely diseased. Her EKG is with no changes. Her troponin is mildly elevated. REVIEW OF SYSTEMS: The patient reports easy bruising but reports no swollen glands. The patient reports no fever, no night sweats, no significant weight gain, no significant weight loss. No significant exercise tolerance. The patient reports no dry eyes, no irritation, no vision change. Patient reports no difficulty hearing and no ear pain. Patient reports no frequent nose bleeds or nose and sinus problems. Patient reports on arm pain on exertion. No shortness of breath while lying down. No history of heart murmur. Patient reports no cough, no wheezing or coughing up blood. Patient reports no abdominal pain, no vomiting. Normal appetite. No diarrhea and not vomiting blood. No nausea and no constipation. Patient reports no incontinence. No difficulty urinating. No hematuria. No increased frequency. Patient reports no muscle aches. No weakness, no arthralgias, no back pain. No swelling of the extremities. Patient reports no abnormal mole, no jaundice, no rashes. Reports no loss of consciousness. No weakness and no numbness. No seizures, dizziness, or headaches. The patient reports no depression, no sleep disturbance, feeling safe in a relationship and no alcohol abuse. Patient reports on fatigue. Reports no runny nose or sinus pressure. No itching, no hives, and no frequent sneezing. PHYSICAL EXAMINATION: GENERAL APPEARANCE: Well-nourished, well-developed, appears stated age. Level of distress, comfortable. PSYCHIATRIC: Mental status, alert, normal affect. Orientation, oriented to time, place and person. EYES: Lids and conjunctiva, noninjected. No discharge, no pallor. ENT: Lips, teeth, gums, normal dentition. Oropharynx, no cyanosis, no pallor. NECK: Carotid arteries, bilateral normal upstroke, no bruits, no thrills. JUGULAR VEINS: No jugular venous pressure or distention. CERVICAL LYMPH NODES: Nontender, nonenlarged. THYROID: Not enlarged. Nontender. No nodules. LUNGS: Respiratory effort, unlabored. CHEST: Normal curvature. No thoracic deformity. No chest wall tenderness. Percussion, resonant. Auscultation, clear. No wheezes, no rales, no rhonchi. CARDIOVASCULAR: Precordial exam, nondisplaced. No heaves or pericardial thrills. Rate and rhythm, regular. Heart sounds, normal S1, normal S2. No S3, HISTORY AND PHYSICAL [id number] DANY,WHITNEY CATHERINE no gallop, no rub. Systolic murmur, not heard. Diastolic murmur, not heard. EXTREMITIES: No cyanosis, no edema. Peripheral pulses, full and equal in all extremities, except as noted. No bruits appreciated. ABDOMEN: Soft, nondistended. Normal aorta. No bruit. Nontender. No masses. Liver, nontender, no hepatomegaly. Spleen, nontender, no splenomegaly. MUSCULOSKELETAL: No joint tenderness. No joint swelling. No erythema. NEUROLOGICAL: Normal gait, normal strength, normal tone. SKIN: Warm and dry. OVERALL IMPRESSION: Acute coronary syndrome. At this time, she is pain free; however, troponin is elevated. Most likely, she has recurrent disease in the diagonal graft and/or closure of the graft. We will proceed with coronary angiography in the near future. TRANSINT:[id number] Voice Confirmation ID: [id number] DOCUMENT ID: [id number] JOSE MANUEL GARCIA MD at 0959 CC: [id number] DICTATION DATE: 03/07/18914 PROCESS TANK TENDER: 03/07/18 1054 ADM IN [place] [id number] [place] [id number]
--- NOTE | ~2018-03-06 | OP ---
PATIENT NAME: WHITNEY SAENZ MEDICAL RECORD: [id number] :53 LOCATION:D.M2 D.2126 ADMISSION DATE:03/07/18 SURGEON: JOSE MANUEL GARCIA MD DATE OF OPERATION: 03/08/2018 PROCEDURES: 1. PTCA and stent vein graft to LAD and diagonal. 2. Left heart catheterization. 3. Selective coronary angiography. 4. Vein graft angiography. 5. VILLALTA angiography. 6. Left ventriculogram. INDICATIONS: Angina and coronary artery disease. PROCEDURE IN DETAIL: After informed consent was obtained and after a detailed description of risks, benefits as well as alternative therapies, the patient elected to proceed with angiogram and angioplasty. The right femoral area was prepped and draped in normal sterile fashion. Right femoral artery was cannulated via modified Seldinger technique with placement of 6-Irish sheath. All catheters exchanged through this sheath. FINDINGS: Left ventriculogram was performed in standard 30-degree STOLL view, reveals anteroapical hypokinesis. Overall ejection fraction in the 40% range. SELECTIVE CORONARY ANGIOGRAPHY: 1. Left main is with no significant angiographic disease. 2. The left circumflex has an 80% stenosis proximally. 3. The left anterior descending has a 95% stenosis in the mid vessel. The VILLALTA is grafted and is patent. 4. The right coronary is totally occluded. 5. Vein graft to the right coronary is totally occluded. 6. Vein graft to the LAD diagonal system is patent; however, 95% stenosis in the mid shaft and 90% stenosis at the ostium. PTCA STENT OF THE VEIN GRAFT TO THE LAD AND DIAGONAL: Stents used were 2.5 x 28 and 3.5 x 15 both Alpine Xience stents. Result was 0% residual stenosis. OVERALL IMPRESSION: Successful percutaneous transluminal angioplasty and stent of the vein graft to the left anterior descending and diagonal going from 95% initial stenosis to 0% residual. TRANSINT:[id number] Voice Confirmation ID: [id number] DOCUMENT ID: [id number] JOSE MANUEL GARCIA MD at 1156 CC: [id number] DICTATION DATE: 03/08/18 0958 BENZOL OPERATOR: 03/08/18 1137 [place] [address]
--- NOTE | ~2018-03-06 | HEMODYNAMI ---
PATIENT:WHITNEY SAENZ MEDICAL RECORD: [id number] : 53 LOCATION:[facility] D.2126 ADMISSION DATE: 03/07/18 Generatedon:03/08/20189:58 Patient name: WHITENY SAENZ Patient #: [id number] SSN: D OB: 1955 Date of study: 03/08/2018 Page: Of Hemodynamic Procedure Report Patient Data Patient Demographics Procedure consent was obtained First Name: WHITNEY Gender: Female Last Name: DANY : 1955 [facility] Initial: CATHERINE Age: 62 year(s) Patient #: [id number] Race: Additional ID: [id number] Contact details Address: [address] [place] [address] State: [place] City: [place] Zip code: [address] Past Medical History History of disease Date Diagnosis Comments CAD Peripheral vascular disease COPD Allergies: No known allergies Admission Admission Data Admission Date: 03/07/2018 Admission Time: 1:42 Room #: D.2126 Procedure Procedure Types Cath Procedure Diagnostic Procedure LHC LHC w/Coronaries w/Grafts PCI Procedure AMI/SVG/MISSILE FACILITIES REPAIRER PTCA or Stent SVG-BMS/MYRNA Initial Procedure Description Procedure Date Procedure Date: 03/08/2018 Procedure Start Time: 9:31 Procedure End Time: 9:58 Procedure Staff Name Function Napoleon Caceres MD Performing Physician Jennifer Francis RT Monitor Chai Bell RN Nurse Alejandro Yost RT Scrub Procedure Data Cath Procedure Fluoroscopy Diagnostic fluoroscopy Total fluoroscopy Time: 8 time: 8 min min Diagnostic fluoroscopy Total fluoroscopy dose: 774 dose: 774 mGy mGy Contrast Material Contrast Material Type Amount (ml) Isovue 300 139 Entry Location Entry Primary Successful Side Size Upsize Upsize Entry Closure Succes sful Closure Location (Fr) 1 (Fr) 2 (Fr) Remarks Device Remarks Femoral Right 6 Fr Exoseal artery Short Estimated blood loss: 10 ml Diagnostic catheters Device Type Used For End Catheter Placement MULTIPACK Pigtail 5 Fr LV Angiography catheter DIAGNOSTIC MPA-2 5Fr SVG Angiography catheter ([id number]) MULTIPACK JL 4.0 5Fr Left Coronary catheter Angiography Procedure Complications No complications Procedure Medications Medication Administration Route Dosage Oxygen NC 2 l/min Lidocaine 2% added to field 20 Heparin Flush Bag added to field 2 bags (1000units/500ml NS) 0.9% NaCl I.V. 100 ml/hr Versed I.V. 2 mg Fentanyl I.V. 100 mcg Versed I.V. 1 mg Fentanyl I.V. 50 mcg Heparin Bolus I.V. 4000 units Versed I.V. 1 mg Fentanyl I.V. 50 mcg Versed I.V. 1 mg Hemodynamics Rest Heart Rate: 73 (bpm) Snapshots Pre Cath Intra NCS Post Cath Vital Signs Time Heart Resp SPO2 etCO2 NIBP (mmHg) Rhythm Pain Sedation Rate (ipm) (%) (mmHg) Status Level (bpm) 9:14:47 71 22 97 0 232/90(128) NSR 0 (11) 10(A) , No pain 9:19:46 73 14 96 0 181/93(156) NSR 0 (11) 10(A) , No pain 9:24:41 68 18 100 38.2 158/81(127) NSR 0 (11) 10(A) , No pain 9:29:28 66 16 94 23.9 133/75(103) NSR 0 (11) 10(A) , No pain 9:34:47 69 15 95 31.4 114/67(106) NSR 0 (11) 9(A) , No pain 9:39:30 70 13 95 35.2 110/77(102) NSR 0 (11) 9(A) , No pain 9:44:08 70 14 94 33.7 107/74(88) NSR 0 (11) 9(A) , No pain 9:48:49 72 15 96 35.9 99/70(86) NSR 0 (11) 9(A) , No pain 9:53:27 80 16 95 35.9 114/63(91) NSR 0 (11) 10(A) , No pain 9:58:06 71 13 96 35.2 109/68(101) NSR 0 (11) 10(A) , No pain Medications Time Medication Route Dose Verified Delivered Reason Notes Effectiveness by by 9:25:51 Oxygen NC 2 Napoleon Buffie used for l/min Morris Bell RN procedure 9:25:58 Lidocaine 2% added 20ml Napoleon Napoleon for local to vial Morris Caceres MD anesthetic field 9:26:04 Heparin Flush added 2 Napoleon Napoleon used for Bag to bags Morris Caceres MD procedure (1000units/500ml field NS) 9:26:13 0.9% NaCl I.V. 100 Napoleon Buffie Per physician ml/hr Morris Bell RN 9:31:16 Versed I.V. 2 mg Napoleon Buffie for sedation Morris Bell RN 9:31:20 Fentanyl I.V. 100 Napoleon Buffie for sedation mcg Morris Bell RN 9:36:12 Versed I.V. 1 mg Napoleon Buffie for sedation Morris Bell RN 9:36:17 Fentanyl I.V. 50 Napoleon Buffie for sedation mcg Morris Bell RN 9:40:17 Versed I.V. 1 mg Napoleon Buffie for sedation Morris Bell RN 9:40:21 Fentanyl I.V. 50 Napoleon Buffie for sedation mcg Morris Bell RN 9:43:03 Heparin Bolus I.V. 4000 Napoleon Buffie for verifie d units Morris Bell RN anticoagulation with dr caceres 9:48:52 Versed I.V. 1 mg Napoleon Buffie for sedation Morris Bell RN Procedure Log Time Note 8:52:58 Alejandro Yost RT(R) sent for patient. Start room use. 8:52:59 Time tracking: Call back (After hours or weekends) 8:53:08 Plan of Care:Hemodynamics will remain stable., Cardiac rhythm will remain stable., Comfort level will be maintained., Respiratory function will remain adequate., Patient/ family verbilizes understanding of procedure., Procedure tolerated without complication., Recovers from procedure without complications.. 9:06:21 Patient received from PCU to CCL 1 Alert and oriented. Tansferred to table in Supine position. 9:06:22 Warm blankets applied, and anamaria hugger turned on for patient comfort. 9:06:22 Correct patient and procedure confirmed by team. 9:06:23 Signed procedure consent form obtained from patient. 9:06:24 ECG and BP/O2 sat monitors applied to patient. 9:06:25 Full Disclosure recording started 9:11:43 Vital chart was started 9:13:03 Rhythm: sinus rhythm 9:13:32 IV RT FOREARM INFILTRATED. 9:17:28 IV started by Chai Bell RN inright forearm with a 22 gauge IV catheter with 0.9% NaCl at KVO. 9:19:19 Baseline sample Acquired. 9:19:28 IV right forearm D/C'd due to infiltration. 9:19:38 Baseline sample Acquired. 9:20:00 H&P Date Dictated: 03/07/2018 Within 30 days and on chart.. 9:20:02 Pre-procedure instructions explained to patient. 9:20:02 Pre-op teaching completed and patient verbalized understanding. 9:20:04 Family in patients room. 9:20:05 Patient NPO since Midnight. 9:20:13 Patient allergic to No known allergies 9:20:15 Is the patient allergic to Iodine/contrast media? No. 9:20:59 Is patient on blood thinner?Yes 9:21:00 ACC The patient was administered the following blood thiners within the last 24 hours: ACCAspirin, ACCPlavix 9:21:30 Patient diabetic? No. 9:21:33 Previous problem with sedation/anesthesia? No ? 9:21:34 Snore? Yes 9:21:35 Sleep apnea? No 9:21:35 Deviated septum? No 9:21:36 Opens mouth fully? Yes 9:21:37 Sticks out tongue? Yes 9:21:46 Airway obstruction? No ? 9:21:57 Dentures? Yes OUT 9:22:01 Pre procedure: right dorsailis pedis pulse 2+ Normal; easily identifiable; not easily obliterated 9:22:03 Patient pain scale 0/10 ?. 9:22:06 Lab results completed and on chart. 9:22:11 Right groin area was prepped with chlora-prep and draped in sterile fashion 9:22:11 Alarms reviewed by R. N. 9:22:12 Sharps counted by scrub and verified by R.N. 9:22:15 Use device set Femoral Dx 9:22:16 ACIST Syringe (72036) opened to sterile field. 9:22:16 Bag Decanter (2002S) opened to sterile field. 9:22:17 Medline Cath Pack ([id number]) opened to sterile field. 9:22:17 DIAGNOSTIC WIRE .035 260cm J wire (293386) opened to sterile field. 9:22:19 ACIST Hand Control (92038) opened to sterile field. 9:22:19 ACIST Manifold (69285) opened to sterile field. 9:22:20 DIAGNOSTIC Multipack 5Fr catheter set ([id number]) opened to sterile field. 9:22:21 Tegaderm 4 x 4 (1626W) opened to sterile field. 9:25:51 Oxygen 2 l/min NC was administered by Chai Bell RN; used for procedure; 9:25:58 Lidocaine 2% 20ml vial added to field was administered by Napoleon Caceres MD; for local anesthetic; 9:26:04 Heparin Flush Bag (1000units/500ml NS) 2 bags added to field was administered by Napoleon Caceres MD; used for procedure; 9:26:13 0.9% NaCl 100 ml/hr I.V. was administered by Chai Bell RN; Per physician; 9:27:34 Zero performed for pressure channel P1 9:30:41 Final Timeout: patient, procedure, and site verified with staff and physician. All members of the team are in agreement. 9:30:43 Right groin site verified by team. 9:30:46 Physical assessment completed. ASA score P 2 - A patient with mild systemic disease as per Napoleon Caceres MD. 9:30:50 Sedation plan: IV Moderate Sedation Medication:Versed, Fentanyl 9:30:53 Procedure started. 9:31:10 Local anesthetic to right femoral artery with Lidocaine 2% by Napoleon Caceres MD.INITIAL ACCESS ONLY 9:31:16 Versed 2 mg I.V. was administered by Chai Bell RN; for sedation; 9:31:20 Fentanyl 100 mcg I.V. was administered by Chai Bell RN; for sedation; 9:32:23 A 6 Fr Short sheath was inserted into the Right Femoral artery 9:33:22 A MULTIPACK Pigtail 5 Fr catheter was advanced over the wire and used for LV Angiography. 9:33:24 LV gram done using STOLL 9:33:27 Injector settings: Ml/sec: 10, Volume: 20, 9:33:34 EF : 40 % 9:34:07 GUIDE 6FR AR 2.0 SH catheter ([id number]) opened to sterile field. 9:34:20 6 Fr AR 2.0 SH guide catheter was inserted over the wire 9:34:43 SVG to Diag angiography performed. 9:36:12 Versed 1 mg I.V. was administered by Chai Bell RN; for sedation; 9:36:17 Fentanyl 50 mcg I.V. was administered by Chai Bell RN; for sedation; 9:38:55 Guide catheter removed. 9:40:17 Versed 1 mg I.V. was administered by Chai Bell RN; for sedation; 9:40:21 Fentanyl 50 mcg I.V. was administered by Chai Bell RN; for sedation; 9:42:28 A DIAGNOSTIC MPA-2 5Fr catheter ([id number]) was advanced over the wire and used for SVG Angiography. TO RCA OCCLUDED 9:43:03 Heparin Bolus 4000 units I.V. was administered by Chai Bell RN; for anticoagulation; verified with dr caceres 9:43:08 6 Fr AR 2.0 SH guide catheter was inserted over the wire 9:43:47 CHOICE PT ES wire advanced. 9:45:49 Inflate balloon Inflation number: 1 A EUPHORA 2.5 x 15 Balloon ([id number]) was prepped and advanced across the Aorta Left -> 1st Diag, then inflated to 9 JHON for 0:10 (min:sec). 9:45:57 Inflation number: 2 The EUPHORA 2.5 x 15 Balloon ([id number]) was reinflated across the Aorta Left -> 1st Diag, to 17 JHON for 0:07 (min:sec). 9:46:10 Inflation number: 3 The EUPHORA 2.5 x 15 Balloon ([id number]) was reinflated across the Aorta Left -> 1st Diag, to 9 JOHN for 0:04 (min:sec). 9:46:20 Inflation number: 4 The EUPHORA 2.5 x 15 Balloon ([id number]) was reinflated across the Aorta Left -> 1st Diag, to 9 JHON for 0:06 (min:sec). 9:47:05 Balloon removed over the wire. 9:48:52 Versed 1 mg I.V. was administered by Chai Bell RN; for sedation; 9:49:07 Place stent Inflation Number: 5 A ALPINE Rx 2.5 x 28 stent ([id number]) was prepped and advanced across the Aorta Left -> 1st Diag. The stent was deployed at 15 JHON for 0:04 (min:sec). 9:49:54 Stent catheter was removed intact over wire. 9:50:40 Place stent Inflation Number: 6 A ALPINE Rx 3.5 x 15 stent ([id number]) was prepped and advanced across the Aorta Left -> 1st Diag. The stent was deployed at 17 JHON for 0:06 (min:sec). 9:50:56 Stent catheter was removed intact over wire. 9:50:58 Wire removed. 9:50:58 Guide catheter removed. 9:52:00 A MULTIPACK JL 4.0 5Fr catheter was advanced over the wire and used for Left Coronary Angiography. 9:52:31 Catheter removed. 9:52:38 Sheath removed intact; hemostasis achieved with Exoseal to the Right Femoral artery. 9:52:45 Procedure ended.(Physican Out) 9:52:57 EXOSEAL 6Fr (EX600) opened to sterile field. 9:53:34 CHOICE PT Extra Support 182cm wire ([id number]) opened to sterile field. 9:53:35 INFLATOR Merit BasixCompak (XP8964) opened to sterile field. 9:54:20 SHEATH Prelude 6Fr 0.035 (RRX-6O-22-035) opened to sterile field. 9:55:00 Procedure type changed to Cath procedure, Diagnostic procedure, LHC, LHC w/Coronaries w/Grafts, PCI procedure, AMI/SVG/MISSILE FACILITIES REPAIRER PTCA or Stent, SVG-BMS/MYRNA Initial 9:55:19 Fluoroscopy time 08.00 minutes. 9:55:23 Flurop Dose total: 774 9:55:23 Fluoroscopy dose: 774 mGy 9:55:34 Contrast amount:Isovue 300 139ml. 9:55:36 Sharps counted by scrub and verified by R.N. 9:55:37 Insertion/operative site no bleeding no hematoma. 9:55:40 Post-op/insertion site Right Femoral artery dressed using a 4 x 4 and Tegaderm. 9:55:42 Post right femoral artery:stable, clean and dry 9:55:44 Post Procedure Pulses reassessed and unchanged 9:55:46 Post-procedure physical assessment completed. ASA score P 2 - A patient with mild systemic disease as per Napoleon Caceres MD. 9:55:48 Post procedure rhythm: unchanged. 9:55:50 Estimated blood loss: 10 ml 9:55:52 Post procedure instruction explained to patient.Patient verbalizes understanding. 9:55:52 Patient needs reinforcement of post procedure teaching. 9:55:58 Procedure Complication : No complications 9:56:00 See physician's report for complete and final results. 9:56:49 Procedure and supply charges have been captured, reviewed, submitted and are correct. 9:57:48 Vital chart was stopped 9:57:51 Report given to PCU. 9:57:54 Patient transfered to PCU with Bed. 9:58:01 Procedure ended. 9:58:01 Full Disclosure recording stopped 9:58:07 End room use (Document Last) Intervention Summary Intervention Notes Time ActionType Lesion and Equipment Action# Pressure Duration Attributes Used 9:45:49 Inflate Aorta Left EUPHORA 2.5 1 9 00:10 balloon -> 1st Diag x 15 Balloon ([id number]) 9:45:57 Reinflate Aorta Left EUPHORA 2.5 2 17 00:07 balloon -> 1st Diag x 15 Balloon ([id number]) 9:46:10 Reinflate Aorta Left EUPHORA 2.5 3 9 00:04 balloon -> 1st Diag x 15 Balloon ([id number]) 9:46:20 Reinflate Aorta Left EUPHORA 2.5 4 9 00:06 balloon -> 1st Diag x 15 Balloon ([id number]) 9:49:07 Place stent Aorta Left ALPINE Rx 5 15 00:04 -> 1st Diag 2.5 x 28 stent ([id number]) 9:50:40 Place stent Aorta Left ALPINE Rx 6 17 00:06 -> 1st Diag 3.5 x 15 stent ([id number]) Device Usage Item Name Manufacture Quantity Catalog Number Hospital Part Current Minimal Lot# / Charge Number Stock Stock Serial# Code ACIST Syringe Acist 1 04274 262262 373800 788482 20 (76993) [employer] Bag Decanter Microtek 1 177052 37699 121867 5 (2002S) Medical Inc. Medline Cath Cardinal 1 [id number] 720950 79649 734269 5 Pack Health ([id number]) DIAGNOSTIC WIRE St Evaristo 1 181184 927988 716298 983536 30 .035 260cm J wire (568724) ACIST Hand Acist 1 55386 826892 891922 148340 5 Control (07357) Medical Systems Inc ACIST Manifold Acist 1 79245 551664 915604 578130 5 (78441) Medical Systems Inc DIAGNOSTIC Cardinal 1 [id number] 503669 42323 402746 30 Multipack 5Fr Health catheter set (MO1587) Tegaderm 4 x 4 3M 1 1626W 089438 914880 096604 5 (1626W) MULTIPACK Cardinal 1 514580 5 Pigtail 5 Fr Health catheter GUIDE 6FR AR Medtronic 1 [id number] 796863 82223 067236 1 2.0 SH catheter ([id number]) DIAGNOSTIC Cardinal 1 [id number] 336723 278873 574920 5 MPA-2 5Fr Health catheter (051450C) EUPHORA 2.5 x Medtronic 1 [id number] 330499 187745 238536 5 [id number] 15 Balloon ([id number]) ALPINE Rx 2.5 x Grajeda 1 8855600-08 838794 417225 761385 5 6859269 28 stent Vascular ([id number]) ALPINE Rx 3.5 x Grajeda 1 0474435-15 790703 348964 143585 5 7961944 15 stent Vascular ([id number]) MULTIPACK JL Cardinal 1 938692 5 4.0 5Fr Health catheter EXOSEAL 6Fr Cardinal 1 EX600 304587 249514 189538 10 (EX600) Health CHOICE PT Extra [place] 1 [id number] 903765 779212 275875 5 Support 182cm Scientific wire ([id number]) INFLATOR Merit Merit 1 XK9843 128070 247434 610241 15 BasixCompak Medical (UO0091) SHEATH Prelude Merit 1 GHC-3F-85-35 000995 5850314 016365 5 6Fr 0.035 Medical (WUQ-5A-89-035) Signature Audit [place] Stage Time Signature Unsigned Intra-Procedure 03/08/2018 Jennifer 9:58:17 AM Counts RT(R) Signatures Monitor : Jennifer Signature : Counts RT Date : Time : [address] [place] [address]
--- NOTE | ~2018-03-06 | DS ---
PATIENT:WHITNEY MONCADA :53 MEDICAL RECORD: [id number] DISCHARGE SUMMARY ADMISSION DATE: 03/07/18 DISCHARGE DATE: 03/08/18 DATE OF SERVICE: 03/08/2018 DIAGNOSES: 1. Unstable angina. 2. Coronary disease. 3. PTCA and stent, LAD diagonal vein graft on this admission. Ms. Moncada presents with unstable angina, found to have 99% stenosis of the vein graft to the LAD diagonal. She underwent successful PTCA and stent of this territory. Discharged home with no change in the medications as she is already on aspirin and Plavix. Follow up with [facility] in one month. TRANSINT:[id number] Voice Confirmation ID: [id number] DOCUMENT ID: [id number] JOSE MANUEL GARCIA MD at 1741 CC: [id number] DICTATION DATE: 03/08/18 0956 CMO & PRESIDENT: 03/08/18 1715 DIS IN 03/08/18 [address] [place] [address]
[2018-03-06 23:29] LABS: BASOPHILS 0.3 % (0-2); EOSINOPHILS 2.6 % (0-7); HEMATOCRIT 42.8 % (36.0-48.0); HEMOGLOBIN 13.7 g/dL (12-16); IMMATURE GRANULOCYTES 0.6 % (0-5); LYMPHOCYTES 22.1 % (15-50); MCH 27.2 pg (26.0-34.0); MCV 84.9 fL (80.0-100.0); MEAN PLATELET VOLUME 11.1 fL (7.4-10.4); MONOCYTES 7.7 % (2-11); NEUTROPHILS 66.7 % (40-80); RBC 5.04 10x6/uL (4.00-5.40); RDW 14.7 % (11.5-14.5); WBC 14.3 10x3/uL (4.8-10.8)
[2018-03-06 23:30] LABS: PLATELET COUNT 152 10x3/uL (130-400)
[2018-03-06 23:36] LABS: ALBUMIN 3.6 g/dL (3.4-5.0); ANION GAP 12.6 mmol/L (8-16); BILIRUBIN - TOTAL 0.17 mg/dL (0.2-1.3); CALCIUM 9.1 mg/dL (8.5-10.1); CARBON DIOXIDE 28.6 mmol/L (21.0-32.0); CREATININE - SERUM 1.1 mg/dL (0.6-1.3); POTASSIUM - SERUM 4.2 mmol/L (3.5-5.1); PROTEIN - SERUM 7.2 g/dL (6.4-8.2)
[2018-03-06 23:55] LABS: TROPONIN-I 0.942 ng/mL (0.000-0.060)
[2018-03-07] VITALS (7 sets, daily range): BP systolic 100–173; BP diastolic 50–82; Ht 167.6 cm; Wt 83.6 kg
[2018-03-07 06:18] LABS: BASOPHILS 0.4 % (0-2); EOSINOPHILS 2.7 % (0-7); HEMATOCRIT 42.3 % (36.0-48.0); HEMOGLOBIN 13.6 g/dL (12-16); IMMATURE GRANULOCYTES 0.2 % (0-5); LYMPHOCYTES 22.9 % (15-50); MCH 27.3 pg (26.0-34.0); MCHC 32.2 g/dL (31.0-37.0); MCV 84.8 fL (80.0-100.0); MEAN PLATELET VOLUME 10.5 fL (7.4-10.4); MONOCYTES 8.1 % (2-11); NEUTROPHILS 65.7 % (40-80); RBC 4.99 10x6/uL (4.00-5.40); RDW 14.6 % (11.5-14.5); WBC 12.3 10x3/uL (4.8-10.8)
[2018-03-07 06:19] LABS: PLATELET COUNT 207 10x3/uL (130-400)
[2018-03-07 07:09] LABS: CALC OSMOLALITY 293 mosm/kg (275-300); CALCIUM 8.7 mg/dL (8.5-10.1); CARBON DIOXIDE 26.2 mmol/L (21.0-32.0); CHLORIDE - SERUM 108 mmol/L (98-107); GLUCOSE 115 mg/dL (74-106); POTASSIUM - SERUM 4.4 mmol/L (3.5-5.1); SODIUM 146 mmol/L (136-145); UREA NITROGEN 17 mg/dL (7-18)
[2018-03-07 07:10] LABS: CREATININE - SERUM 0.8 mg/dL (0.6-1.3); TROPONIN-I 0.673 ng/mL (0.000-0.060); eGFR NON AFRICAN AMERICAN 77 mL/min (90-120)
[2018-03-08] VITALS: BP 174/72
[2018-03-08 04:00] VITALS: BP 153/66
[2018-03-08 08:45] VITALS: BP 159/93
[2018-03-08 11:12] VITALS: BP 123/58
== END 2018-03-08 16:13 | disposition home or self-care (01) | DRG 246 ==
LOC: D.ER 22:46 → D.M2 03-07 01:42
PROVIDERS: Family Medicine; Internal Medicine Interventional Cardiology
PROC: B2121ZZ Fluoroscopy of Single Coronary Artery Bypass Graft using Low Osmolar Contrast (ICD-10-PCS; 2018-03-08)
PROC: B2111ZZ Fluoroscopy of Multiple Coronary Arteries using Low Osmolar Contrast (ICD-10-PCS; 2018-03-08)
PROC: B2151ZZ Fluoroscopy of Left Heart using Low Osmolar Contrast (ICD-10-PCS; 2018-03-08)
PROC: B2181ZZ Fluoroscopy of Left Internal Mammary Bypass Graft using Low Osmolar Contrast (ICD-10-PCS; 2018-03-08)
PROC: 027035Z Dilation of Coronary Artery, One Artery with Two Drug-eluting Intraluminal Devices, Percutaneous Approach (ICD-10-PCS; principal; 2018-03-08 08:52)
PROC: 4A023N7 Measurement of Cardiac Sampling and Pressure, Left Heart, Percutaneous Approach (ICD-10-PCS; 2018-03-08 08:52)
DX: I97.190 Other postprocedural cardiac functional disturbances following cardiac surgery (principal); I21.A9 Other myocardial infarction type; I25.110 Atherosclerotic heart disease of native coronary artery with unstable angina pectoris; T82.218A Other mechanical complication of coronary artery bypass graft, initial encounter; Y83.8 Other surgical procedures as the cause of abnormal reaction of the patient, or of later complication, without mention of misadventure at the time of the procedure; I10 Essential (primary) hypertension; E78.5 Hyperlipidemia, unspecified; Z95.5 Presence of coronary angioplasty implant and graft; Z95.1 Presence of aortocoronary bypass graft

== ENCOUNTER → 2018-06-17 18:17 | Outpatient (CLI) | payer MEDICARE ==
[2018-03-07 03:54] VITALS: BMI 29.6
[2018-06-17 18:47] LABS: ALBUMIN 3.6 g/dL (3.4-5.0); BILIRUBIN - DIRECT 0.07 mg/dL (0.00-0.30); BILIRUBIN - INDIRECT 0.1 mg/dL (0.00-1.00); BILIRUBIN - TOTAL 0.17 mg/dL (0.2-1.3); CHOL - HDL RATIO 2.8 ratio (2.3-4.1); LDL-HDL RATIO 1.3 ratio (1.5-3.5); PROTEIN - SERUM 6.4 g/dL (6.4-8.2)
== END | disposition home or self-care (01) ==
LOC: D.LABREF 18:17
PROVIDERS: Internal Medicine Cardiovascular Disease
DX: E78.5 Hyperlipidemia, unspecified (principal)

== ENCOUNTER → 2018-07-14 19:34 | Outpatient (CLI) | payer MEDICARE ==
[2018-03-07 03:54] VITALS: BMI 29.6
== END | disposition home or self-care (01) ==
LOC: D.MAMMO 11:00
DX: R92.8 Other abnormal and inconclusive findings on diagnostic imaging of breast (principal)

== ENCOUNTER → 2018-11-23 16:43 | Outpatient (CLI) | payer MEDICARE ==
[2018-03-07 03:54] VITALS: BMI 29.6
[2018-11-23 18:16] LABS: CHOL - HDL RATIO 2.3 ratio (2.3-4.1); LDL-HDL RATIO 0.9 ratio (1.5-3.5)
== END | disposition home or self-care (01) ==
LOC: D.LABREF 16:43
PROVIDERS: ATTEND Internal Medicine Interventional Cardiology
DX: I25.10 Atherosclerotic heart disease of native coronary artery without angina pectoris (principal); E78.5 Hyperlipidemia, unspecified

== ENCOUNTER → 2019-04-06 09:23 | Outpatient (CLI) | payer MEDICARE ==
[2018-03-07 03:54] VITALS: BMI 29.6
--- NOTE | 2019-04-12 13:55 | EC ---
PATIENT:WHITNEY SAENZ DATE OF SERVICE: 04/06/19 SEX: F MEDICAL RECORD: [id number] DATE OF : 53 LOCATION:[facility] AGE OF PATIENT: 64 ADMISSION DATE: 04/06/19 REFERRING PHYSICIAN: INTERPRETING PHYSICIAN: TABBY DIAZ MD ECHOCARDIOGRAM REPORT ECHO CHARGES 4 ECHO COMPLETE Date: 04/06/19 CLINICAL DIAGNOSIS: CAD HX HTN /COPD ECHOCARDIOGRAPHIC MEASUREMENTS (adult normal given) AC root (d.<3.7cm) 3.1 cm LV Septum d (<1.2 cm> 1.5 cm Valve Excursion 1.4 cm LV Septum (systole) 1.7 cm Left Atria (s.<4.0cm> 3.8 cm LVPW d(<1.2cm) 1.7 cm RV (d.<2.3cm) 3.6 cm LVPW (sytole) 1.8 cm LV diastole(<5.6CM) 4.4 cm MV E-F(>70mm/sec) cm LV systole 3.0 cm LVOT Diameter 1.6 cm MV exc.(>10mm) 1.8 cm Est.ejection fraction (50-75%) % DOPPLER: LVIT cm/sec A 92.0 cm/sec E 104 cm/sec LA cm/sec RVSP 17 mmHg LVOT 138 cm/sec AOP1/2T m/s Asc. Ao 160 cm/sec RVOT 89 cm/sec RA cm/sec PA 116 cm/sec AV Gradient Peak 10.24mmHg AV Mean 5.10 mmHg AV Area 2.0 cm MV Gradient Peak 4.07 mmHg MV Mean 1.32 mmHg MV Area cm COMMENTS: Substation Technician: Isa MAXWELL Investor Relations Associate: 3 Dr. Stanton TAPE# PACS Pericardial Effusion N DATE OF SERVICE: 04/06/2019 Adequate 2-D echo, color-flow and spectral Doppler, and M-mode. LVH is present. LV internal dimensions are normal. Wall motion is normal. EF is greater than or equal to 55%. Aortic valve sclerosis without stenosis by Doppler interrogation. Left atrium is normal at 3.8 cm. Mitral valve shows mitral annular calcification with only mild MR. Right-sided chambers are grossly normal. Mild TR. ECHOCARDIOGRAM REPORT [id number] WHITNEY SAENZ TRANSINT:[id number] Voice Confirmation ID: [id number] DOCUMENT ID: [id number] TABBY DIAZ MD at 1355 CC: [id number] DICTATION DATE: 04/08/19 1456 LENS MOLDER: 04/08/19 1611 DEP CLI 04/06/19 [place] [id number] [place] [id number]
== END | disposition home or self-care (01) ==
LOC: D.HCCARDIO 09:23
PROVIDERS: ATTEND Internal Medicine Interventional Cardiology
DX: I25.10 Atherosclerotic heart disease of native coronary artery without angina pectoris (principal)

== ENCOUNTER → 2020-04-19 10:28 | Outpatient (CLI) | payer MEDICARE ==
[2018-03-07 03:54] VITALS: BMI 29.6
--- NOTE | ~2020-04-19 | EC ---
PATIENT:WHITNEY SAENZ DATE OF SERVICE: 04/19/20 SEX: F MEDICAL RECORD: [id number] DATE OF : 53 LOCATION:[facility] AGE OF PATIENT: 65 ADMISSION DATE: 04/19/20 REFERRING PHYSICIAN: INTERPRETING PHYSICIAN: TABBY DIAZ MD ECHOCARDIOGRAM REPORT ECHO CHARGES 4 ECHO COMPLETE Date: 04/19/20 CLINICAL DIAGNOSIS: CAD/ASSESS AORTIC SCLEROSIS MITRAL AND TRICUSPID REGURG ECHOCARDIOGRAPHIC MEASUREMENTS (adult normal given) AC root (d.<3.7cm) 3.5 cm LV Septum d (<1.2 cm> 1.4 cm Valve Excursion 1.3 cm LV Septum (systole) 1.6 cm Left Atria (s.<4.0cm> 4.0 cm LVPW d(<1.2cm) 1.4 cm RV (d.<2.3cm) 3.5 cm LVPW (sytole) 1.6 cm LV diastole(<5.6CM) 4.3 cm MV E-F(>70mm/sec) cm LV systole 3.1 cm LVOT Diameter 1.6 cm MV exc.(>10mm) 1.8 cm Est.ejection fraction (50-75%) % DOPPLER: LVIT cm/sec A 84.0 cm/sec E 102.0 cm/sec LA cm/sec RVSP 17 mmHg LVOT 99 cm/sec AOP1/2T m/s Asc. Ao 154 cm/sec RVOT 92 cm/sec RA cm/sec PA 114 cm/sec AV Gradient Peak 9.49 mmHg AV Mean 5.07 mmHg AV Area 1.4 cm MV Gradient Peak 4.86 mmHg MV Mean 1.50 mmHg MV Area cm COMMENTS: Automatic Machine Attendant: 2 NANCY MAXWELL Process Engineer: 3 Dr. Stanton TAPE# PACS Pericardial Effusion N DATE OF SERVICE: Adequate 2D, color flow imaging, spectral Doppler, and M-mode. LVH is present. LV internal dimensions are normal. Wall motion is normal. EF is greater than or equal to 55%. Aortic valve is tricuspid. No evidence of stenosis by Doppler interrogation. Left atrium appears normal at 4.0 cm. Mitral valve shows no prolapse. Mild MR. Right-sided chambers are grossly normal. Trace TR. ECHOCARDIOGRAM REPORT [id number] WHITNEY SAENZ TRANSINT:[id number] Voice Confirmation ID: [id number] DOCUMENT ID: [id number] TABBY DIAZ MD CC: [id number] DICTATION DATE: 04/20/20 1333 COPPER PLATE PRINTER: 04/20/20 2344 DEP CLI 04/19/20 [place] [id number]
== END | disposition home or self-care (01) ==
LOC: D.HCCECHO 10:28
PROVIDERS: ATTEND Internal Medicine Interventional Cardiology
DX: I25.10 Atherosclerotic heart disease of native coronary artery without angina pectoris (principal)

== ENCOUNTER 2020-12-07 17:47 | Outpatient (CLI) | payer MEDICARE ==
[2018-03-07 03:54] VITALS: BMI 29.6
== END 2020-12-07 23:59 | disposition home or self-care (01) ==
LOC: D.MAMMO 17:47
PROVIDERS: ATTEND Family Medicine
DX: Z12.31 Encounter for screening mammogram for malignant neoplasm of breast (principal)

== ENCOUNTER 2021-02-20 16:30 | Inpatient (IN) | payer MEDICARE ==
[~2021-02-20] VITALS: Ht 167.6 cm; Wt 76.2 kg
--- NOTE | ~2021-02-20 | HEMODYNAMI ---
PATIENT:WHITNEY SAENZ MEDICAL RECORD: [id number] : 53 LOCATION:[facility] ADMISSION DATE: 02/20/21 Generatedon:114:41 Patient name: WHITNEY SAENZ Patient #: [id number] SSN: [id number] : 1955 Date of study: 02/21/2021 Page: Of Hemodynamic Procedure Report Patient Data Patient Demographics Procedure consent was obtained First Name: WHITNEY Gender: Female Last Name: DANY : 1955 [facility] Initial: CATHERINE Age: 65 year(s) Patient #: [id number] Race: SSN: [id number] Additional ID: [id number] Contact details [address]: [address] [place] [address] State: [place] City: [place] Zip code: [address] Past Medical History History of disease Date Diagnosis Comments CAD Peripheral vascular disease COPD Allergies: No known allergies Admission Admission Data Admission Date: 02/20/2021 Admission Time: 20:06 Admit Source: Emergency department Room #: D.CL12 Height (in.): 65.75 BSA: 1.85 (m2) Height (cm.): 167 BMI: 27.25 (kg/m2) Weight (lbs.): 167.55 Weight (kg.): 76 Lab Results Lab Result Date: 02/21/2021 Lab Result Time: 0:00 Biochemistry Name Units Result Min Max BUN mg/dl 23 --(----)-* 7 18 CK-MB ng/ml 11.8 --(----)-* 0 3.6 Creatinine mg/dl 0.9 --(-*--)-- 0.6 1.3 eGFR ml/min 66 *-(----)-- 90 120 NONAFRICAN Troponin l ng/ml 3.469 --(----)-* 0 0.06 CBC Name Units Result Min Max Hematocrit % 43 --(*---)-- 42 54 Hemoglobin g/dl 14 --(*---)-- 13.5 17.5 Procedure Procedure Types Cath Procedure Diagnostic Procedure [facility] w/Coronaries Sedation Charges Moderate Sedation 25-39 minutes PCI Procedure Hemochron ACT Test PTCA PTCA Initial Procedure Description Procedure Date Procedure Date: 02/21/2021 Procedure Start Time: 13:59 Procedure End Time: 14:39 Procedure Staff Name Function Eddi Yao MD Performing Physician Nena Laird RT Monitor Venessa Mehta RT Scrub Kodi Ha RN Nurse Procedure Data Cath Procedure Fluoroscopy Diagnostic fluoroscopy Total fluoroscopy Time: 7.9 time: 7.9 min min Diagnostic fluoroscopy Total fluoroscopy dose: 0 dose: 0 mGy mGy Contrast Material Contrast Material Type Amount (ml) Isovue 370 116 Entry Location Entry Primary Successful Side Size Upsize Upsize Entry Closure Succes sful Closure Location (Fr) 1 (Fr) 2 (Fr) Remarks Device Remarks Femoral Right 5 Fr 6 Fr artery Short Estimated blood loss: 10 ml Diagnostic catheters Device Type Used For End Catheter Placement MULTIPACK JL 4.0 5Fr Procedure catheter MULTIPACK 3DRC 5Fr Procedure catheter DIAGNOSTIC IM 5Fr Procedure catheter ([id number]) MULTIPACK Pigtail 5 Fr Procedure catheter Procedure Complications No complications Procedure Medications Medication Administration Route Dosage 0.9% NaCl I.V. 100 ml/hr Oxygen etCO2 Nasal cannula 2 l/min Heparin Flush Bag added to field 2 bags (1000units/500ml NS) Lidocaine 2% added to field 20 Versed I.V. 1 mg Fentanyl I.V. 50 mcg Versed I.V. 1 mg Fentanyl I.V. 50 mcg Heparin Bolus I.V. 7000 units Nitroglycerin IC/IA I.C. 100 mcg Hemodynamics Rest BSA: 1.85 (m2) HGB: 14 (g/dl) O2 Consumption: Estimated: 167.18 (ml/min) O2 Cons umption indexed: Estimated:90.37 (ml/min/m) Heart Rate: 63 (bpm) Pressure Samples Time Site Value (mmHg) Purpose Heart Use Rate(bpm) 14:16 LV 114/6,26 Snapshot 63 Gradients Valve Time Site Site Mean SEP/DFP Peak To Heart Use 1 2 (mmHg) (sec/min) Peak Rate (mmHg) (bpm) Aortic 14:16 LV AO 63 Snapshots Pre Cath Intra NCS Post Cath Vital Signs Time Heart Resp SPO2 etCO2 NIBP (mmHg) Rhythm Pain Sedation Rate (ipm) (%) (mmHg) Status Level (bpm) 13:44:33 63 34 100 37.5 147/78(130) NSR 0 (11) 10(A) , No pain 13:48:44 63 11 97 33.7 116/76(95) NSR 0 (11) 10(A) , No pain 13:52:52 62 12 95 30.7 107/66(99) NSR 0 (11) 10(A) , No pain 13:56:54 64 7 96 36.7 125/73(105) NSR 0 (11) 10(A) , No pain 14:01:06 63 9 96 38.2 110/67(105) NSR 0 (11) 10(A) , No pain 14:05:12 63 10 98 29.9 124/68(102) NSR 0 (11) 10(A) , No pain 14:09:25 63 9 96 8.9 118/60(91) NSR 0 (11) 10(A) , No pain 14:13:33 62 10 97 2.9 118/70(98) NSR 0 (11) 10(A) , No pain 14:17:41 63 11 97 14.2 115/69(91) NSR 0 (11) 10(A) , No pain 14:21:51 63 11 97 0 100/58(89) NSR 0 (11) 10(A) , No pain 14:25:55 63 11 99 0 113/60(85) NSR 0 (11) 10(A) , No pain 14:30:07 66 10 99 31.4 85/51(64) NSR 0 (11) 10(A) , No pain 14:34:59 65 7 98 25.4 123/65(94) NSR 0 (11) 10(A) , No pain 14:39:09 64 11 98 26.2 121/69(90) NSR 0 (11) 10(A) , No pain Medications Time Medication Route Dose Verified Delivered Reason Notes Effectiveness by by 13:43:06 0.9% NaCl I.V. 100 Eddi Kodi used for ml/hr Yao MD Leland personal development coach 13:43:14 Oxygen etCO2 2 Eddi Kodi used for Nasal l/min Maximilian Ha RN procedure cannula 13:43:22 Heparin Flush added 2 Eddi Eddi used for Bag to bags Maximilian Yao MD procedure (1000units/500ml field NS) 13:43:30 Lidocaine 2% added 20ml Eddi Eddi for local to vial Maximilian Yao MD anesthetic field 13:54:55 Versed I.V. 1 mg Eddi Kodi for sedation Maximilian Ha RN 13:54:58 Fentanyl I.V. 50 Eddi Kodi for sedation mcg Maximilian Ha RN 13:59:57 Versed I.V. 1 mg Eddi Kodi for sedation Maximilian Ha RN 14:00:00 Fentanyl I.V. 50 Eddi Kodi for sedation mcg Maximilian Ha RN 14:19:15 Heparin Bolus I.V. 7000 Eddi Kodi for units Maximilian Ha RN anticoagulation 14:29:21 Nitroglycerin I.C. 100 Eddi Eddi for IC/IA mcg Maximilian Yao MD vasodilation Procedure Log Time Note 12:23:39 Informed consent obtained and on chart 12:24:04 Admit Source: Emergency department 12:24:07 Procedure Status Urgent Heart Cath (IP). 12:24:08 Time tracking: Regular hours (M-F 7:00 - 5:00) 12:24:12 Plan of Care:Hemodynamics will remain stable., Cardiac rhythm will remain stable., Comfort level will be maintained., Respiratory function will remain adequate., Patient/ family verbilizes understanding of procedure., Procedure tolerated without complication., Recovers from procedure without complications.. 12:39:36 Diagnostic Cath Status : Urgent 12:43:32 Patient Height : 65.75 inches 12:43:36 Patient Weight : 167.55 lbs 13:21:42 ACC Patient presents with Unstable Angina CCS Anginal Class 2--Slight limitation of ordinary activity. 13:25:26 Kodi Ha RN sent for patient. Start room use. 13:31:11 Pre-procedure instructions explained to patient. 13:31:12 Pre-op teaching completed and patient verbalized understanding. 13:31:19 Patient received from ED to CCL 2 Alert and oriented. Tansferred to table in Supine position. 13:31:20 Warm blankets applied, and anamaria hugger turned on for patient comfort. 13:31:20 Correct patient and procedure confirmed by team. 13:31:21 ECG and BP/O2 sat monitors applied to patient. 13:31:22 Full Disclosure recording started 13:31:25 Family in waiting room. 13:31:27 Patient NPO since Breakfast. 13:31:36 Patient allergic to No known allergies 13::40 Alarms reviewed by R. N. 13::40 Sharps counted by scrub and verified by R.N. 13:31:45 Stress Test: no; N/A ? 13:31:47 Lab results completed and on chart. 13::59 Lab Result : Hemoglobin 14 g/dl 13::59 Lab Result : Hematocrit 43 % 13:43:06 0.9% NaCl 100 ml/hr I.V. was administered by Kodi Ha RN; used for procedure; Verbal order read back and verified. 13:43:14 Oxygen 2 l/min etCO2 Nasal cannula was administered by Kodi Ha RN; used for procedure; Verbal order read back and verified. 13:43:22 Heparin Flush Bag (1000units/500ml NS) 2 bags added to field was administered by Eddi Yao MD; used for procedure; Verbal order read back and verified. 13:43:30 Lidocaine 2% 20ml vial added to field was administered by Eddi Yao MD; for local anesthetic; Verbal order read back and verified. 13:43:32 Vital chart was started 13:43:37 Baseline sample Acquired. 13:43:40 Rhythm: sinus rhythm 13:43:48 H&P Date Dictated: 02/21/2021 ER History on chart., New H&P dictated by physician.. 13:43:52 Is the patient allergic to Iodine/contrast media? No. 13:43:53 Was the patient premedicated? Yes 13:43:54 Is patient on blood thinner?Yes 13:43:57 ACC The patient was administered the following blood thiners within the last 24 hours: ACCPlavix 13:43:59 Patient diabetic? Yes. 13:44:00 If diabetic: On Metformin? Yes 13:44:09 If on Metformin: Last Dose? 02/21/2021 13:44:12 Patient not . Patient is over age 55. 13:44:13 ----Pre-sedation anethsthesia assessment.---- 13:44:15 Previous problem with sedation/anesthesia? No ? 13:44:16 Snore? Yes 13:44:18 Sleep apnea? Unknown 13:44:19 Deviated septum? No 13:44:20 Opens mouth fully? Yes 13:44:22 Sticks out tongue? Yes 13:44:25 Airway obstruction? Yes ? 13:44:31 Dentures? Yes IN TIGHT 13:44:36 Pre procedure: right dorsailis pedis pulse 1+ Palpable, but thready & weak; easily obliterated 13:44:39 Patient pain scale 0/10 ?. 13:44:45 Right groin area was prepped with chlora-prep and draped in sterile fashion 13:44:48 Use device set Femoral Dx 13:44:50 ACIST Syringe (69489) opened to sterile field. 13:44:50 Bag Decanter (2002S) opened to sterile field. 13:44:51 Medline Cath Pack ([id number]) opened to sterile field. 13:44:52 ACIST Hand Control (13834) opened to sterile field. 13:44:52 ACIST Manifold (23604) opened to sterile field. 13:44:53 DIAGNOSTIC Multipack 5Fr catheter set (MS9263) opened to sterile field. 13:44:55 SHEATH 5FR [place] (ZCX045) opened to sterile field. 13:44:56 EMERALD Guide Wire (601-799) opened to sterile field. 13:44:57 Tegaderm 4 x 4 (1626W) opened to sterile field. 13:48:54 IV patent on arrival in left antecubital with 0.9% NaCl at [facility]. 13:51:18 Lab Result : Creatinine 0.9 mg/dl 13:51:18 Lab Result : BUN 23 mg/dl 13:51:18 Lab Result : eGFR NONAFRICAN 66 ml/min 13:51:18 Lab Result : Troponin l 3.469 ng/ml 13:51:18 Lab Result : CK-MB 11.8 ng/ml 13:51:32 Risk of Mortality: 0.1 13:51:34 Risk of blood transfusion: 0.5 13:51:37 Risk of MANDIE: 1.0 13:53:46 Zero performed for pressure channel P1 13:54:03 --------ALL STOP TIME OUT------ 13:54:03 Final Timeout: patient, procedure, and site verified with staff and physician. All members of the team are in agreement. 13:54:05 Right groin site verified by team. 13:54:09 Fire Safety Assessment: A--An alcohol-based skin anteseptic being used preoperatively., C--Open oxygen or nitrous oxide is being used., D--An ESU, laser, or fiber-optic light is being used. 13:54:25 Physical assessment completed. ASA score P 2 - A patient with mild systemic disease as per Eddi Yao MD. 13:54:28 2) 60-89 Mildly reduced kidney function, and other findings (as for stage 1) point to kidney disease. 13:54:32 Maximum allowable contrast dose (3.7 X eGFR X 0.75)183 ml. 13:54:36 Sedation plan: IV Moderate Sedation Medication:Versed, Fentanyl 13:54:55 Versed 1 mg I.V. was administered by Kodi Ha RN; for sedation; Verbal order read back and verified. 13:54:58 Fentanyl 50 mcg I.V. was administered by Kodi Ha RN; for sedation; Verbal order read back and verified. 13:59:43 Procedure started. 13:59:57 Versed 1 mg I.V. was administered by Kodi Ha RN; for sedation; Verbal order read back and verified. 14:00:00 Fentanyl 50 mcg I.V. was administered by Kodi Ha RN; for sedation; Verbal order read back and verified. 14:01:53 MICROPUNCTURE 4FR Gobbler (Q77819) opened to sterile field. 14:03:00 4FR MICROPUNCUTURE INSERTED INTO RFA. 14:03:11 A 5 Fr sheath was inserted into the Right Femoral artery 14:04:17 A MULTIPACK JL 4.0 5Fr catheter was advanced over the wire and used for Procedure. 14:05:01 LCA angiography performed. 14:05:03 Injector settings: Ml/sec: 3, Volume: 6, 14:05:54 Catheter exchanged over wire. 14:07:13 A MULTIPACK 3DRC 5Fr catheter was advanced over the wire and used for Procedure. 14:07:49 RCA angiography performed. 14:07:51 Injector settings: Ml/sec: 3, Volume: 6, 14:08:37 SVG to Diag angiography performed. 14:08:39 Injector settings: Ml/sec: 3, Volume: 6, 14:09:41 Catheter exchanged over wire. 14:11:05 A DIAGNOSTIC IM 5Fr catheter ([id number]) was advanced over the wire and used for Procedure. 14:11:48 VILLALTA to LAD angiography performed. 14:11:53 Injector settings: Ml/sec: 3, Volume: 6, 14:12:44 Catheter removed. 14:12:47 GLIDE WIRE ANGLE 260cm (JC6136) opened to sterile field. 14:12:56 GLIDEWIRE INSERTED. 14:13:22 DAIG 5FR IM CATHETER REINSERTED OVER GLIDEWIRE. 14:13:41 VILLALTA to LAD angiography performed. 14:13:43 Injector settings: Ml/sec: 3, Volume: 6, 14:15:09 Catheter exchanged over wire. 14:16:28 A MULTIPACK Pigtail 5 Fr catheter was advanced over the wire and used for Procedure. 14:16:32 LV gram done using STOLL 14:16:33 LV hemodynamics recorded. 14:16:35 Injector settings: Ml/sec: 5, Volume: 15, 14:16:41 EF : 35 % 14:16:51 Catheter exchanged over wire. 14:17:22 Use device set YAO PCI 14:17:26 Proceeding to intervention. 14:17:35 SHEATH 6FR [place] (WRN979) opened to sterile field. 14:17:37 INFLATOR Merit BasixCompak (CG7037) opened to sterile field. 14:17:38 TUBING High Pressure Extension Tubing (Yao) ([id number]) opened to sterile field. 14:17:52 BMW 300cm Mckinnon 2 J wire ([id number]) opened to sterile field. 14:17:54 GUIDE 6FR AR 1.0 catheter (AF7PM25) opened to sterile field. 14:18:28 Sheath upsized to a 6 Fr Short. 14:19:15 Heparin Bolus 7000 units I.V. was administered by Kodi Ha RN; for anticoagulation; Verbal order read back and verified. 14:20:52 6 Fr AR 1 guide catheter was inserted over the wire 14:20:56 BMW 300 wire advanced. 14:21:20 Wire advanced across lesion. 14:22:45 Pre PCI Site: Vein Graft Diag1 has 99% stenosis. 14:23:11 ACC Pre-intervention IRWIN Flow is 1. 14:24:29 Inflate balloon Inflation number: 1 A EUPHORA 2.5 x 20 Balloon ([id number]) was prepped and advanced across the Aorta Left -> 1st Diag 99, then inflated to 14 JHON for 0:00 (min:sec) . 14:25:12 Inflation number: 1 The EUPHORA 2.5 x 20 Balloon ([id number]) was reinflated across the Aorta Left -> 1st Diag , to 13 JHON for 0:00 (min:sec) . 14:26:19 Inflation number: 1 The EUPHORA 2.5 x 20 Balloon ([id number]) was reinflated across the Aorta Left -> 1st Diag1 , to 14 JHON for 0:00 (min:sec) . 14:27:27 Balloon removed over the wire. 14:29:21 Nitroglycerin IC/IA 100 mcg I.C. was administered by Eddi Yao MD; for vasodilation; Verbal order read back and verified. 14:31:41 Wire removed. 14:32:08 Guide catheter removed. 14:32:11 EXOSEAL 6Fr (EX600) opened to sterile field. 14:32:25 Fluoroscopy time 07.90 minutes. 14:32:29 Fluoroscopy dose: 0 mGy 14:32:35 Dose Area Product 85500 mGy/cm. 14:32:39 Contrast amount:Isovue 370 116ml. 14:32:42 Maximum allowable dose exceeded? No. 14:32:43 Sharps counted by scrub and verified by R.N. 14:33:20 Procedure ended.(Physican Out) 14:33:31 Post-op/insertion site Right Femoral artery dressed using a 4 x 4 and Tegaderm. 14:33:35 Post right femoral artery:stable, soft, clean and dry 14:33:37 Post Procedure Pulses reassessed and unchanged 14:33:41 Post procedure: right dorsailis pedis pulse 2+ Normal; easily identifiable; not easily obliterated. 14:34:31 Post-procedure physical assessment completed. ASA score P 2 - A patient with mild systemic disease as per Edid Yao MD. 14:34:35 Post procedure rhythm: unchanged. 14:34:40 Estimated blood loss: 10 ml 14:35:11 Post procedure instruction explained to patient.Patient verbalizes understanding. 14:35:11 Patient needs reinforcement of post procedure teaching. 14:35:24 Procedure type changed to Cath procedure, Diagnostic procedure, LHC, LHC w/Coronaries, Sedation Charges, Moderate Sedation 25-39 minutes, PCI procedure, Hemochron ACT Test, PTCA, PTCA Initial 14:39:05 ACT drawn and resulted at HI seconds. (normal therapeutic range 180-240 seconds). 14:39:16 Procedure and supply charges have been captured, reviewed, submitted and are correct. 14:39:19 Procedure Complication : No complications 14:39:23 [facility] Findings: MVD- PCI performed (see procedure note) 14:39:24 Operative report dictated upon procedure completion. 14:39:25 See physician's report for complete and final results. 14:39:34 Report given to [facility]. 14:39:37 Patient transfered to [facility] with Bed. 14:39:39 Procedure ended. 14:39:39 Full Disclosure recording stopped 14:39:49 ACC-PCI Only Patient was given prescriptions, or instructed by Eddi Yao MD to start/continue the following medications upon discharge: Plavix 14:39:50 End room use (Document Last) 14:40:54 Flurop Dose total: 0 14:41:15 Vital chart was stopped Intervention Summary Intervention Notes Time ActionType Lesion and Equipment Action# Pressure Duration Attributes Used 14:24:29 Inflate Aorta Left EUPHORA 1 14 00:00 balloon -> 1st Diag 2.5 x 20 Balloon ([id number]) 14:25:12 Reinflate Aorta Left EUPHORA 1 13 00:00 balloon -> 1st Diag 2.5 x 20 Balloon ([id number]) 14:26:19 Reinflate Aorta Left EUPHORA 1 14 00:00 balloon -> 1st 2.5 x 20 Diag1 Balloon ([id number]) Device Usage Item Name Manufacture Quantity Catalog Hospital Part Current Minimal Lot# / Number Charge Number Stock Stock Serial# Code ACIST Syringe Acist 1 97936 311557 666833 991485 20 (41638) Medical Systems Inc Bag Decanter Microtek 1 395050 25300 054359 5 (2001S) Medical Inc. Medline Cath Medline 1 [id number] 506775 92403 059724 5 Pack ([id number]) ACIST Hand Acist 1 69359 540652 019188 468812 5 Control Medical (85273) Systems Inc ACIST Acist 1 50401 871648 270182 803919 5 Manifold Medical (66364) Systems Inc DIAGNOSTIC Cardinal 1 PW4275 097704 75484 091432 30 Multipack 5Fr Health catheter set (DL4537) SHEATH 5FR Terumo 1 JSV609 161072 985400 404997 5 [place] (TQY297) EMERALD Guide Cardinal 1 502-455 783949 709940 604352 5 Wire Health (502-455) Tegaderm 4 x 3M 1 1626W 263681 191666 821319 5 4 (1626W) MICROPUNCTURE Gobbler [facility] 1 P90347 399635 456021 024993 5 4FR Gobbler (I24320) MULTIPACK JL Cardinal 1 197176 5 4.0 5Fr Health catheter MULTIPACK Cardinal 1 679683 5 3DRC 5Fr Health catheter DIAGNOSTIC IM Cardinal 1 [id number] 026519 217094 503677 5 5Fr catheter Health (440204X) GLIDE WIRE Terumo 1 AT8866 179728 530743 109179 5 ANGLE 260cm (YX0803) MULTIPACK Cardinal 1 229460 5 Pigtail 5 Fr Health catheter SHEATH 6FR Terumo 1 BAH032 500367 463902 896521 40 [place] (AVP406) INFLATOR Merit 1 ED3099 992539 397679 402439 15 Merit Medical BasixCompak (MQ2901) TUBING High Merit 1 [id number] 924349 76297 822015 10 Pressure Medical Extension Tubing (Yao) (RI9699H) GUIDE 6FR AR Medtronic 1 RF2HP84 750789 45640 387199 1 1.0 catheter (FZ7MD83) BMW 300cm Grajeda 1 [id number] 174544 580971 044017 5 Mckinnon 2 J Vascular wire (9171477Y) EUPHORA 2.5 x Medtronic 1 CAM3137J 519864 490794 541207 5 [id number] 20 Balloon ([id number]) EXOSEAL 6Fr Cardinal 1 EX600 568964 818753 450000 10 (EX600) Health Signature Audit Hall Stage Time Signature Unsigned Intra-Procedure 02/21/2021 Nena Laird 2:40:01 PM RT(R) Intra-Procedure 02/21/2021 Kodi Ha RN 2:40:47 PM Intra-Procedure 02/21/2021 Eddi Yao MD 2:41:13 PM Signatures Performing Physician : Signature : Eddi Yao MD Date : Time : Monitor : Nena Laird Signature : RT Date : Time : Nurse : Kodi Ha RN Signature : Date : Time : [address] [address]
--- NOTE | 2021-02-20 17:19 | NUR ---
PT REPORTS TOOK 162MG ASA WITHIN AN HOUR OF ARRIVAL.
[2021-02-20 17:20] LABS: BASOPHILS 1.1 % (0-2); EOSINOPHILS 2.7 % (0-7); LYMPHOCYTES 13.7 % (15-50); MCH 27.2 pg (26.0-34.0); MCHC 32.5 g/dL (31.0-37.0); MCV 83.6 fL (80.0-100.0); MEAN PLATELET VOLUME 8.4 fL (7.4-10.4); MONOCYTES 6.7 % (2-11); NEUTROPHILS 75.8 % (40-80); RBC 5.14 10x6/uL (4.00-5.40); RDW 14.9 % (11.5-14.5); WBC 13.7 10x3/uL (4.8-10.8)
[2021-02-20 17:21] VITALS: BP 209/88
[2021-02-20 17:21] LABS: PLATELET COUNT 281 10x3/uL (130-400)
[2021-02-20 17:28] LABS: APTT 29.8 SECONDS (22.8-39.4); CALC OSMOLALITY 288 mosm/kg (275-300); CALCIUM 9.6 mg/dL (8.5-10.1); CARBON DIOXIDE 24.5 mmol/L (21.0-32.0); CHLORIDE - SERUM 104 mmol/L (98-107); CREATININE - SERUM 1.3 mg/dL (0.6-1.3); POTASSIUM - SERUM 4.3 mmol/L (3.5-5.1); PROTIME 12.2 SECONDS (11.6-15.0); SODIUM 140 mmol/L (136-145); UREA NITROGEN 27 mg/dL (7-18); eGFR NON AFRICAN AMERICAN 43 mL/min (90-120)
[2021-02-20 17:39] LABS: GLUCOSE 195 mg/dL (74-106)
[2021-02-20 17:49] LABS: ALBUMIN 3.8 g/dL (3.4-5.0); ALKALINE PHOSPHATASE 74 U/L (30-120); ALT (SGPT) 35 U/L (10-68); BILIRUBIN - TOTAL 0.17 mg/dL (0.2-1.3); CKMB 2.3 U/L (0.0-3.6); CREATINE KINASE 59 UL (21-215); MAGNESIUM - SERUM 1.7 mg/dL (1.8-2.4); PROTEIN - SERUM 7.3 g/dL (6.4-8.2)
[2021-02-20 17:58] LABS: TROPONIN-I 1.213 ng/mL (0.000-0.060)
[2021-02-20] MEDS ORDERED: GLUCOPHAGE500 MG PO (18:53)
[2021-02-20 19:10] VITALS: BP 212/95
[2021-02-20 20:10] VITALS: BP 163/73
[2021-02-20 21:08] LABS: CKMB 3.9 U/L (0.0-3.6); CREATINE KINASE 71 UL (21-215)
[2021-02-20 21:10] VITALS: BP 143/69
[2021-02-20 21:58] LABS: TROPONIN-I 1.105 ng/mL (0.000-0.060)
[2021-02-20 22:10] VITALS: BP 139/63
[2021-02-20 23:10] VITALS: BP 127/64
[2021-02-21] VITALS (11 sets, daily range): BP systolic 104–190; BP diastolic 51–108; BMI 27.1
[2021-02-21 03:04] LABS: BASOPHILS 0.8 % (0-2); HEMATOCRIT 40.7 % (36.0-48.0); HEMOGLOBIN 13.2 g/dL (12-16); LYMPHOCYTES 20.6 % (15-50); MCH 27.2 pg (26.0-34.0); MCHC 32.3 g/dL (31.0-37.0); MCV 84.1 fL (80.0-100.0); MEAN PLATELET VOLUME 8.5 fL (7.4-10.4); MONOCYTES 9.1 % (2-11); NEUTROPHILS 66.5 % (40-80); PLATELET COUNT 255 10x3/uL (130-400); RBC 4.84 10x6/uL (4.00-5.40); WBC 13.2 10x3/uL (4.8-10.8)
[2021-02-21 03:10] LABS: APTT 31.6 SECONDS (22.8-39.4); INR 1.16 (0.85-1.17); PROTIME 13.7 SECONDS (11.6-15.0)
[2021-02-21 03:28] LABS: ALBUMIN 3.3 g/dL (3.4-5.0); ALKALINE PHOSPHATASE 66 U/L (30-120); ALT (SGPT) 32 U/L (10-68); BILIRUBIN - TOTAL 0.26 mg/dL (0.2-1.3); CALC OSMOLALITY 290 mosm/kg (275-300); CALCIUM 8.9 mg/dL (8.5-10.1); CARBON DIOXIDE 29.2 mmol/L (21.0-32.0); CHLORIDE - SERUM 107 mmol/L (98-107); CHOL - HDL RATIO 4.3 ratio (2.3-4.1); CHOLESTEROL, TOTAL 146 mg/dL (0-200); CKMB 11.8 U/L (0.0-3.6); CREATINE KINASE 125 UL (21-215); CREATININE - SERUM 0.9 mg/dL (0.6-1.3); GLUCOSE 128 mg/dL (74-106); HDL CHOLESTEROL 34 mg/dL (32-96); LDL CHOLESTEROL 89 mg/dL (0-100); LDL-HDL RATIO 2.6 ratio (1.5-3.5); MAGNESIUM - SERUM 1.8 mg/dL (1.8-2.4); POTASSIUM - SERUM 4.1 mmol/L (3.5-5.1); PRO BNP 1297 pg/mL (0-125); PROTEIN - SERUM 6.7 g/dL (6.4-8.2); SODIUM 143 mmol/L (136-145); TRIGLYCERIDE 115 mg/dL (30-200); TROPONIN-I 3.469 ng/mL (0.000-0.060); UREA NITROGEN 23 mg/dL (7-18); eGFR NON AFRICAN AMERICAN 66 mL/min (90-120)
[2021-02-21 08:39] LABS: CHOL - HDL RATIO 4.1 ratio (2.3-4.1); LDL-HDL RATIO 2.5 ratio (1.5-3.5)
--- NOTE | 2021-02-21 12:12 | NUR ---
PT REC' TO CATH HOLDING ROOM 12 FROM ER. CONSENTS ON CHART. WILL GIVE PREOP MEDICATIONS PER MD ORDERS - SEE EMAR. PT ALERT AND ORIENTED, DENIES PAIN OR NEEDS. ALARMS ON AND C/L IN REACH.
--- NOTE | 2021-02-21 16:01 | NUR ---
RECIEVED FROM HOSPICE SOCIAL WORKER. VS WNL. RIGHT GROIN STABLE WITHOUT BLEEDING OR HEMATOMA NOTED. WILL MONITOR.
--- NOTE | 2021-02-21 18:28 | NUR ---
BED REST UP. GROIN STABLE.
--- NOTE | 2021-02-21 19:30 | NUR ---
PT IN BED, EYES CLOSED, RESP EVEN AND UNLABORED, NO DISTRESS NOTED, CL IN REACH, SR UP X 2.
[2021-02-22] VITALS: BP 163/79
--- NOTE | 2021-02-22 02:20 | NUR ---
I have reviewed this patient and I concur with the Shift Assessment completed by the Licensed Practical Nurse today this shift.
[2021-02-22 04:00] VITALS: BP 143/77
[2021-02-22 07:51] VITALS: BP 149/74
[2021-02-22 09:53] VITALS: Ht 167.6 cm; Wt 76.2 kg
[2021-02-22 11:41] VITALS: BP 136/61
--- NOTE | 2021-02-22 14:08 | NUR ---
PT UPSET ABOUT NOT BEING DISCHARGED YET. DR HENSON ON FLOOR AND PLACED ORDERS. FOLLOW UPS MADE AND PAPERS PRINTED. IV REMOVED AND TELEMETRY RETURNED TO ICU. RIDE IN ROOM WITH PT, THEY AMBULATED OUT TO ER.
== END 2021-02-22 14:11 | disposition home or self-care (01) | DRG 251 ==
LOC: D.ER 16:30 → D.EDHOLD 20:06 → OBSVTIME 20:07 → D.CLR 02-21 12:12 → D.M2 02-21 15:10
PROVIDERS: Emergency Medicine; Family Medicine; Internal Medicine Cardiovascular Disease; ADMIT Family Medicine; ATTEND Family Medicine
PROC: B2131ZZ Fluoroscopy of Multiple Coronary Artery Bypass Grafts using Low Osmolar Contrast (ICD-10-PCS; 2021-02-21)
PROC: B2151ZZ Fluoroscopy of Left Heart using Low Osmolar Contrast (ICD-10-PCS; 2021-02-21)
PROC: 4A023N7 Measurement of Cardiac Sampling and Pressure, Left Heart, Percutaneous Approach (ICD-10-PCS; 2021-02-21)
PROC: B2181ZZ Fluoroscopy of Left Internal Mammary Bypass Graft using Low Osmolar Contrast (ICD-10-PCS; principal; 2021-02-21 13:25)
PROC: 02703ZZ Dilation of Coronary Artery, One Artery, Percutaneous Approach (ICD-10-PCS; 2021-02-21 13:25)
DX: I21.4 Non-ST elevation (NSTEMI) myocardial infarction (principal); I25.10 Atherosclerotic heart disease of native coronary artery without angina pectoris; I24.9 Acute ischemic heart disease, unspecified; E11.9 Type 2 diabetes mellitus without complications